=== PATIENT | female | born 1945 | race Caucasian/White ===

== ENCOUNTER 2018-01-03 06:33 | Day surgery (SDC) | payer OTHER ==
[2017-12-31 11:50] LABS: Absolute Lymphocytes (CBC) 2.8 K/uL (0.7-4.9); Absolute Monocytes 0.7 K/uL (0.1-1.3); Absolute Neutrophil 3.6 K/uL (1.8-8.0); Basophils % 1.4 % (0-1.3); Eosinophils % 2.6 % (0-4.4); Lymphocytes % 38.1 % (15.3-44.8); MCH 30.1 pg (27.0-35.0); MCV 91.1 fL (80-100); MPV 11.7 fL (7.6-11.3); Monocytes % 9.7 % (3.3-12.3); RBC Red Blood Cell Count 5.05 M/uL (3.86-4.86)
[2017-12-31 12:01] LABS: Potassium 4.7 mEq/L (3.6-5.0)
[2017-12-31 12:03] LABS: Urine Appearance CLEAR; Urine Bilirubin NEGATIVE (NEG); Urine Blood NEGATIVE (NEG); Urine Color YELLOW; Urine Glucose TRACE (NEG); Urine Specific Gravity >1.030 (1.005-1.030)
[2017-12-31 12:04] LABS: Urine Microscopic Reflex ORDER UMIC; Urine Protein 1+ (NEG); Urine Urobilinogen 0.2 mg/dL (0.2-1.0)
[2017-12-31 12:12] LABS: Protime INR 1.11
[2017-12-31 12:48] LABS: Urine Bacteria <20 /HPF (<20); Urine Culture Reflex Order REFLEXED; Urine RBC <5 /HPF (NONE SEEN)
[2018-01-03] MEDS ORDERED: MIDAZOLAM HCL 2 MG/2 ML INJ ONE (06:56)
[2018-01-03] MEDS ORDERED: FENTANYL CITR 250 MCG/5 ML ONE (06:56)
[2018-01-03] MEDS ORDERED: ONDANSETRON 4 MG/2 ML VIAL ONE (06:56)
[2018-01-03] MEDS ORDERED: PROPOFOL 200 MG/20 ML VIAL IV ONE (06:56)
[2018-01-03] MEDS ORDERED: ROCURONIUM 50 MG/5 ML VIAL IV ONE (06:56)
[2018-01-03] MEDS ORDERED: LIDOCAINE 2% MPF 5 ML VIAL ONE (06:56)
[2018-01-03] MEDS ORDERED: CEFAZOLIN/SWI 1gm 1 GM/10 ML SYR ONE ×2 (06:58→21:13)
[2018-01-03] MEDS ORDERED: NA CHLORIDE 0.9% 1,000 ML ONE (06:58)
[2018-01-03] MEDS ORDERED: NA CHLORIDE 0.9% 100 ML IV ONE (07:02)
[2018-01-03] MEDS: CEFAZOLIN/SWI 1gm 1 GM/10 ML SYR ONE ×2 (07:36→08:00)
[2018-01-03] MEDS: VASOPRESSIN 20 UNIT/ML VIAL ONE ×2 (07:37→08:27)
[2018-01-03] MEDS ORDERED: GLYCOPYRROLATE 0.2 MG/ML SYR ONE (08:08)
[2018-01-03] MEDS: NA CHLORIDE 0.9% 1,000 ML ONE ×4 (08:40→10:26)
[2018-01-03] MEDS ORDERED: CEFAZOLIN SODIUM 1 GM/VIAL ONE (10:58)
[2018-01-03] MEDS ORDERED: FENTANYL CITR 100 MCG/2 ML ONE (11:07)
[2018-01-03] MEDS ORDERED: Morphine 2 MG/2 ML SYR IV PRN (11:43)
[2018-01-03] MEDS ORDERED: ONDANSETRON 4 MG/2 ML VIAL IV PRN (11:43)
[2018-01-03] MEDS ORDERED: PROMETHAZINE 25 MG/ML VIAL IV PRN (11:43)
--- NOTE | 2018-01-03 11:53 | P.BOP ---
Preoperative diagnosis: cystocele stage 3, vault prolapse, rectocele occult DANE , labial adhesions Postoperative diagnosis: same and posterior enterocele, labial adehsions Primary procedure: cystocele repair with mesh augm/ jen SSLFcolpopexy, rectocele repair Secondary procedure: posterior enterocele repair, lysis of labial adhesions, TVT-O, cysto Hydroelectric Production Technician: Miriam Gerardo Estimated blood loss: 200 Specimen: none Findings: +2/+3/+1/5/thin/5/+1/+1/n/a Anesthesia: General Complications: None Drain(s): Urinary catheter Implants: Uphold mesh, TVT-O MUS sling Transferred to: Recovery Room Condition: Good
[2018-01-03 14:27] VITALS: BMI 32.7
[2018-01-03] MEDS ORDERED: AMLODIPINE 5 MG TAB PO SCH (17:30)
[2018-01-03] MEDS: Ringers Lactate 1,000 ML IV SCH (18:08)
[2018-01-03] MEDS: ACETAMINOPHEN 500 MG TAB PO PRN (20:55)
[2018-01-03] MEDS ORDERED: INSULIN 70/30 100 UNITS/ML SQ SCH (21:00)
[2018-01-03] MEDS: CEFAZOLIN/NS 1gm 1 GM/50 ML BAG IVPB SCH (21:15)
[2018-01-03 21:52] VITALS: O2SAT 96
[2018-01-04] MEDS: Ringers Lactate 1,000 ML IV SCH (02:18)
[2018-01-04] MEDS ORDERED: CEFAZOLIN/SWI 1gm 1 GM/10 ML SYR ONE (05:42)
[2018-01-04] MEDS: CEFAZOLIN/NS 1gm 1 GM/50 ML BAG IVPB SCH (06:00)
[2018-01-04 06:32] LABS: Absolute Monocytes 1.4 K/uL (0.1-1.3); Absolute Neutrophil 11.1 K/uL (1.8-8.0); Basophils % 0.7 % (0-1.3); Eosinophils % 0.9 % (0-4.4); Hematocrit 39.3 % (36.0-45.0); Lymphocytes % 18.9 % (15.3-44.8); MCH 30.4 pg (27.0-35.0); MPV 11.2 fL (7.6-11.3); RBC Red Blood Cell Count 4.32 M/uL (3.86-4.86)
[2018-01-04] MEDS: ACETAMINOPHEN 500 MG TAB PO PRN (07:45)
[2018-01-04 08:08] VITALS: BP 152/72; TEMP 99.3
[2018-01-04] MEDS ORDERED: TERBINAFINE HCL 250 MG TAB PO SCH (09:00)
--- NOTE | 2018-01-14 10:43 | OP ---
Date of Procedure: 01/03/2018 Surgeon: Missy Hart MD Cash Specialist: Miriam Gerardo. Preoperative Diagnosis: Stage III cystocele or anterior wall prolapse and pelvic wall prolapse, rect ocele, occult stress urinary incontinence, labial adhesions, and posterior enterocele. Postoperative Diagnosis: Stage III cystocele or anterior wall prolapse and pelvic wall prolapse, rec tocele, occult stress urinary incontinence, labial adhesions, and posterior enterocele, labial adhesi ons. Procedures Performed: 1.Cystocele repair with synthetic graft augmentation. 2.Bilateral sacrospinous ligament fixation. 3.Colpopexy. 4.Rectocele repair. 5.Posterior enterocele repair, lysis of labial adhesions. 6.Mid urethral sling (TVT). 7.Cystoscopy. Estimated Blood Loss: 200. Specimens: None. Complications: None. Drains: Camacho catheter. Implants: Uphold mesh and TVT mid urethral sling. Findings: POP-Q is as follows:+2, +3, +1, 5, which was realized after intraop exam was done and labi al adhesions were taken down. Then, 5 ,+1, +1 and no applicable; on cystoscopy both ure teric orifices had strong jets of urine, and the bladder appeared to be unremarkable. Indications: The patient was a 72-year-old who presented with problems of vaginal prolapse. She was referred by Dr. Hager. She had worsening urgency and urinary incontinence in the last 2 months. N o vaginal bleeding. She has bowel movement along with her urinary voiding for the for past few month s. Her biggest problem or complaint was the large vaginal bulge, which was impairing her ability to perform her regular activities without bothering. She was sexually active in the past and is unable to do this at the current time. Surgical history is significant for hysterectomy and BSO 40 years ag o,appendectomy, left knee replacement, and trigger finger release. The patient is diabetic and hypert ensive, takes amlodipine for hypertension and Novolin for anxiety. She has been started on Estrace p reop. She was examined in the office. Urodynamic testing was done. She had low maximal urethral cl osure pressure of 59 and Valsalva leak point pressure that was 33 cm of water, and she also has mild . So plan was to place a mid urethral sling because she has a high potential of stress inc ontinence after prolapse reduction. For overactive bladder, we would like to watch. She was residential substance abuse counselor ed to watch until the procedure is completed, and the bladder modifies its frequency and urgency and then treat if needed. After discussing the warnings and all the complications listed and comparing t he contrasting, it appears within the graft augmentation comparing the biological and synthetic repai rs, the patient was counseled and after questions and answers were done, she consented for synthetic graft augmentation repair, because she wanted to have least chances of recurrence in the same quadran t, rectocele was stage II and discussed about recurrence rates with primary repair which is the proce dure of choice for the patient with primary rectocele. She also understood that there was a 30% shannon ce of repeat surgery for that reason and it is the prolapse, and she was consented. Her glycemic con trol was noted to be optimal. Procedure In Detail: After informed consent was verified, the patient was taken to the OR, placed in supine fashion on operating table. One gram of Ancef was given. The patient was placed in a dorsal lithotomy position. Pelvic exam was performed. She was placed in dorsal lithotomy position. No all ergies to medication. After pelvic exam was done, the labial adhesions that met her introitus appear much smaller or narrow er then what were found intraop. The abdomen, vulva, vagina, and perineum were prepped and draped in a sterile fashion. Camacho was ismael ginny in the bladder and clamped and retracted superiorly. The labial adhesions were to be addressed a fter the anterior repair. So, a speculum was placed in the posterior wall of the vagina. The apex was easily grasped with 2 Allis clamps, and 2-0 Vicryl tie sutures were placed to chris the apex. The n midline anterior vaginal wall was held between 2 Allis clamps, one placed right proximal to the ure terovesical junction, one distal to the vaginal wall. After making vaginal mucosal incision with a 1 5-blade, dissection was carried in the plane of the rectovaginal space taking down the vaginal submuc anselmo on the top all the way to the bladder neck into the wall, and the bladder was dissected away unti l the lateral sulci were visualized then the opposite dissection was done as well. Then, using the finger paravesical space was entered and the pararectal space, ischial spine palpated , and sacrospinous ligament palpated medial and posterior to the ischial spine. This was cleaned up through the coccygeus muscle. Once this was done on the right, similar dissection was performed on t he left side and then uphold and opened up. Next, after all was opened, the bite was taken first. This was placed about 2.5 cm medial and posterior to the ischial spine. A good bite was taken. This was retracted on hemostats. These were taken to 2 passes in order to get an optimal pass. Because of this . Once these 2 were tagged, the dilators were pulled to adjust better by contraction of the ligament, a nd the bladder was reduced with 3-0 Vicryl in a correction fashion. The graft was secured to the vag inal vault with 2 PDS sutures, one in the center and 2 on both sides so that the graft was offloaded from its place. Then 2-0 Vicryl suture was taken in a continuous running horizontal mattress fashion the vaginal wall was closed about 3 cm and posterior. Secured the mesh distally with the help of 3-0 Vicryl sutures on the center and 2 on the side just to leave the graft flat without getting folding. The mesh was tensioned much more appropriately withou t a band at the top. Once all this was in place, and point C was at -6 to 7 and then went down to cu t the cord, then the plastic sheaths were off and pulled them out on both sides without tightening an y further. The rest of the vaginal cuff was closed, Camacho was removed and cystoscopy was performed w ith a 17-Polish sheath 30-degree lens and normal saline. Both ureteric orifices well visualized and noted normal jets of urine from both. The patient was given Pyridium prior to the case. There was o range urine. Entire bladder was without any evidence of graft penetration. Cystoscope removed, Camacho replaced. The posterior vaginal wall was depressed tract at this time. The labial adhesions were injected with 1% lidocaine mixed with 1:100,000 epinephrine. Incision made in the midline, and then they were bot h so that they can be sewn without bringing them together in the midline. A triangular skin incision made in the perineum after injecting 50 cc of local with vasopressin and w as diluted, and then the posterior vaginal wall was to at least 2 cm below the apex. This was very p ulled up. I did not think it was necessary for me to make the incision that high that it would disse ct underneath. Once this was done, the rectovaginal septum was dissected away. There was no evidenc e of any septum in the proximal half; however, at this point there was no large enterocele. This was also out, reduced with 3-0 Vicryl, pursestring sutures x3, and the left over rectovaginal septum was under a lot of tension when this was brought to the apex to suture it. We closed the ente rocele and brought the rectovaginal septum together in the midline with interrupted 3-0 Vicryl x3, an d rectal exam was performed and identified the bulbocavernosus muscle and the remnant of them in the midline laterally. Once these were held in Allis clamps. 2-0 Vicryl sutures were placed m ultiple times in order to finish the task. Without taking the levators, these were all brought toget her in 3 sutures and they were tied together with 2-0 Vicryl. Then I trimmed the mucosa was slightly just to take away the edges on a 2 mm. It became very thin. There was a lot of scar tissue in the lower one-third, and this took a long while to dissect this. T his was also trimmed off. The vaginal mucosa was sewn with the help of 2-0 Vicryl in a continuous ru nning locked fashion. Then, 0 Vicryl was used to finish the perineal body rebuilding and after closu re of the perineum. Rectal exam was performed. No evidence of any trauma or foreign body. After gloves were changed, mid urethral area was identified. both sides injected with dil [place] vasopressin 10 cc was done on both sides with a track remaining. The Al stirrups were used to raise the legs into high lithotomy position without causing too much traction at the hip. Then trac ks were created towards the ipsilateral shoulder at 40 degree angle to the horizontal and vertical pl anes on the inferior pubic ramus. Once the obturator space was it was entered on the right side, the n this was opened up and the tract opened up. That was somewhat difficult with was able to achieve t his in the same angle and once this was done, the TVT kit was opened up. The wing guide was used to gently slide in the tract that was already made into the obturator space. Then, the spike was passed in the usual fashion to hug the pubic ramus and exit out at the point of entry based on the level m arked. On the opposite side similar pass was taken. The tip was retrieved in the groin. The plastic dilato rs were pulled out. The plastic sheaths were held with Kellys on both sides and dilators were cut of f. Tension on the urethra was of hemostats and the sheaths were taken out. The mesh was trimmed and flushed with the skin and central the vaginal mucosa was closed with the help of 3-0 Vicryl in a con tinuous running locked fashion. Cystoscopy was performed. No evidence of any trauma to the bladder o r foreign body. Camacho replaced. Packing placed. Needle, instrument, and sponge counts x3 were miranda ect in the case. The patient tolerated procedure well. She will follow up with me in a month [facility] be discharged tomorrow without Camacho depending on her vo id. LONNY/SERGE Voice ID: [id number] Report ID: [id number]
== END 2018-01-04 09:40 | disposition home or self-care (01) ==
LOC: OR 06:33 → 2ND-WC 12:00 → OR 01-04 09:40
PROVIDERS: ATTEND Obstetrics & Gynecology
PROC: 0JUC0JZ Supplement of Pelvic Region Subcutaneous Tissue and Fascia with Synthetic Substitute, Open Approach (ICD-10-PCS; 2018-01-03)
PROC: 0JQC0ZZ Repair Pelvic Region Subcutaneous Tissue and Fascia, Open Approach (ICD-10-PCS; 2018-01-03)
PROC: 0USG7ZZ Reposition Vagina, Via Natural or Artificial Opening (ICD-10-PCS; 2018-01-03)
PROC: 0TSD0ZZ Reposition Urethra, Open Approach (ICD-10-PCS; 2018-01-03)
PROC: 0UNMXZZ Release Vulva, External Approach (ICD-10-PCS; 2018-01-03)
PROC: 0UQF0ZZ Repair Cul-de-sac, Open Approach (ICD-10-PCS; principal; 2018-01-03 07:30)
DX: N99.3 Prolapse of vaginal vault after hysterectomy (principal); N39.3 Stress incontinence (female) (male); Q52.5 Fusion of labia; N95.2 Postmenopausal atrophic vaginitis; N32.81 Overactive bladder; E11.9 Type 2 diabetes mellitus without complications; I10 Essential (primary) hypertension; E66.9 Obesity, unspecified; Z88.2 Allergy status to sulfonamides; Z82.49 Family history of ischemic heart disease and other diseases of the circulatory system; Z83.3 Family history of diabetes mellitus
CPT/HCPCS: 36415 ×2; 56441; 57265; 57267; 57282; 57288; 80048; 82962 ×5; 85025 ×2; 85610; 85730; 86850; 86900; 86901; 87086; 87088; J0690 ×5; J2250; J2270; J2405; J3010; J7030 ×3; 81003; 81015

== ENCOUNTER 2020-08-19 10:13 | Emergency (ER) | payer OTHER ==
--- OUTSIDE RECORDS SUMMARY | 2020-08-19 10:26 | XMS REPORT | Clinical Summary ---
:1945 Author Organization [facility] Address [address] [place] [address] Care Team Providers Name Role Phone Mathieu Hager MD Primary Care Provider Allergies Active Allergy Reactions Severity Noted Date Comments Sulfa (Sulfonamide Antibiotics) Itching High 8 Medications Medication Sig Dispensed Refills Start Date End Date Status amLODIPine (NORVASC) 5 Take 5 mg by mouth 0 05/23/20 18 Active mg tablet daily. atorvastatin (LIPITOR) 80 mg nightly. 0 07/04/2018 Active 80 MG tablet NOVOLIN 70/30 U-100 0 07/29/2018 Active INSULIN 100 unit/mL (70-30) injection COMFORT EZ SYRINGE 1 0 07/29/2018 Active mL 30 gauge x 5/16 syringe COMFORT EZ SYRINGE 1 0 07/30/2018 Active mL 31 gauge x 5/16 syringe losartan (COZAAR) 50 Take 50 mg by 0 Active MG tablet mouth daily. traMADol (ULTRAM) 50 Take 50 mg by 0 Active mg tablet mouth daily as needed for moderate pain. docusate sodium Take by mouth 2 0 Active (COLACE) 50 MG capsule (two) times a day. Active Problems Problem Noted Date Diabetes mellitus Glaucoma HL (hearing loss) Visual impairment Surgical History Surgery Date Site/Laterality Comments APPENDECTOMY COLONOSCOPY 09/17/2016 - 09/16/2017 normal EYE SURGERY Bilateral Dr. Rick gates HAND SURGERY Bilateral Carpal tunnel an d Trigger Finger HYSTERECTOMY KNEE SURGERY 09/17/2014 - 09/16/2015 Left Total Knee Replacement SHOULDER SURGERY 09/17/2016 - 09/16/2017 Right TUBAL LIGATION BARIATRIC SURGERY Shayan Vu Medical History Medical History Date Comments Allergic Ragweed, grass, tree s Diabetes mellitus (HCC) HL (hearing loss) Visual impairment Glaucoma Bilateral Family History Medical History Relation Name Comments Heart disease Father Cancer Mother Diabetes Mother Heart disease Mother Stroke Mother Diabetes Sister Heart disease Sister Stroke Sister Relation Name Status Comments Father Mother Sister Social History Tobacco Use Types Packs/Day Years Used Date Never Smoker Smokeless Tobacco: Never Used Alcohol Use Drinks/Week oz/Week Comments No Alcohol Habits Answer Date Recorded How often do you have a drink containing alcohol? Never 08/28/2018 How many drinks containing alcohol do you have on a typical Not asked day when you are drinking? How often do you have six or more drinks on one occasion? No t asked Sex Assigned at Date Recorded Not on file Last Filed Vital Signs Not on file Plan of Treatment Health Maintenance Due Date Last Done Comments DIABETES: RETINAL EYE EXAM 1957 DIABETIC FOOT EXAM 1957 BREAST CANCER SCREENING 1997 COLONOSCOPY SCREENING 1997 SHINGLES VACCINES (#1) 1997 65+ PNEUMOCOCCAL VACCINE (1 of 1 - PPSV23) 2012 INFLUENZA VACCINE 04/17/2020 Results Not on fileafter 08/19/2019 Insurance Payer Benefit Plan / Subscriber ID Effective Phone Address T ype Group Dates MEDICARE MEDICARE PART [id number] [facility] [place] [place] [facility] A AND B nt MUTUAL OF M[employer]UAL OF [id number] 2017-Shari DAVIES nt Advance Directives For more information, please contact: [phone] Type Date Recorded Patient College Intern Explanati on Advance Directives, Living Will and Medical Power of Poultry Trimmer
--- OUTSIDE RECORDS SUMMARY | 2020-08-19 10:27 | XMS REPORT | Encounter Summary ---
:1945 Author Care Team Providers Name Role Phone Dr. Eladio Lou Primary Care Provider [phone] Mathieu Hager MD Primary Care Provider [phone] Reason for Visit diabetes Instructions 1. 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 Obstructive sleep apnea syndr ome 4. Obesity 5. Hyperlipidemia high cholesterol: care ins tructions 6. Essential hypertension 7. Body mass index 30+ - obesity body mass index: care inst ructions learning about healthy elton ght Discussion Note: None recorded. Plan of Care Reminders Provider Appointments None recorded. Lab None recorded. Referral None recorded. Procedures None recorded. Surgeries None recorded. Imaging None recorded. Medications Name Start Date Accu-Chek Annalisa Plus test strips BD Insulin Syringe Ultra-Fine 0.5 mL 31 gauge x 5/16" losartan 50 mg tablet Take 1 tablet every day by oral route in the morning. Novolin 70/30 U-100 Insulin 100 unit/mL subcutaneous s uspension Inject 54 units twice a day by subcutaneous route bef ore meals. tramadol 50 mg tablet Take 1 tablet every 6 hours by oral route as needed. Travatan (with benzalkonium) 0.004 % eye drops INSTILL 1 DROP INTO AFFECTED EYE(S) BY OPHTHALMIC ROUTE ONCE DAILY INTHE EVENING Tylenol Arthritis Pain Medications Administered None recorded. Vitals Height Weight BMI Blood Pressure 5 ft 2 in 170 lbs 31.1 kg/m2 165/76 mm[Hg] Results Lab Results None recorded. Allergies Code Code System Name Reaction Severity Status Onset 67504 RxNorm Sulfacetamide Hives Active Problems Name Status Onset Date Source Hyperlipidemia Active 06/20/2017 Obesity Active 06/20/2017 Type 2 Diabetes Mellitus Active 07/16/2018 Retinal Disorder Active 07/16/2018 Essential Hypertension Active 10/22/2018 Obstructive Sleep Apnea Syndrome Active 08/26/2019 Type 2 Diabetes Mellitus with Multiple Active 0 Complications Procedures Date Name Performed by 03/17/2019 Knee Replacement Information not avai lable 04/17/2017 Extraction of Cataract Information not a vailable 03/17/2017 Complete Repair of Rotator Cuff Informat ion not available Vaccine List Vaccine Type influenza, injectable, quadrivalent 05/17/2020 Social History Tobacco Smoking Status Never Smoker Past Encounters 06/15/2020 Type 2 Diabetes Mellitus with Multiple C omplications; Retinal Disorder; Obstructive Sleep Apnea Syndrome; Obesity; Hyperlipidemia; Essential Hypertension; Body Mass Index 30+ - Obesity Eladio Mauricio MD: [id number] [facility] [place], [facility] [address], [place] [address], Ph. History of Present Illness Diabetes F/U Reported By: Patient HPI: Review finger sticks: fastin s to 130s, pre dinner: 70s to 230s. Context: seeing eye doctor r egularly. Associated Symptoms: no weight gain, no weight loss, no inc reased thirst, no increased urination, no blurred vision, numbness of feet Notes: Diabetes Education: discusse d with pt about her current dose of novolin 70/30. she is taking between 40 - 50 units bid.<div>-she does have occasional hypoglycemia and is tired of checking her bg level on her fingers. she is interested i n getting a Freestyle Lonny system if insurance would cover it. </ div><div>-explained to her that medicare required 3x/day injections, but during the Covid-19 crisis, they have allowed other insulin users to get this system. discussed this with the MD. If she had it, she would be able to determine the right dose of her insulin.</div><div>
</div ><div>30 minutes of diabetes education performed today</div> Note: Her visit is an audio visit via telephone for her DM2. She thinks her BP is high because she hasher mother in law living with her and she recently adopted her 16 year grandson. Review of Systems Comprehensive General Adult ROS Reported By: Patient Constitutional: Constitutional: no fever, no night sweats Eyes: Eyes: no dry eyes, no vision change ENMT: Ears: no difficulty hearing, no ear pain. Mouth/Throat: no sore throat Cardiovascular: Cardiovascular: no chest jorge n, no shortness of breath when walking, no palpitations Respiratory: Respiratory: no cough, no wh eezing, no shortness of breath Gastrointestinal: Gastrointestinal: no abdomin al pain, no nausea, no vomiting, no constipation, no diarrhea Musculoskeletal: Musculoskeletal: no muscle a ches, no muscle weakness, no arthralgias/joint pain, no b ack pain, no swelling in the extremities Integumentary: Skin: no rashes Neurologic: Neurologic: no weakness, no dizziness, no headaches Psychiatric: Psych: no depression, no sle ep disturbances, no anxiety Endocrine: Endocrine: no fatigue Allergic/Immunologic: Allergy/Immunologic: no itch ing Physical Exam Notes: Alert and oriented to place and time
--- OUTSIDE RECORDS SUMMARY | 2020-08-19 10:27 | XMS REPORT | Encounter Summary ---
:1945 Author Care Team Providers Name Role Phone Dr. Eladio Lou Primary Care Provider [phone] Mathieu Hager MD Primary Care Provider [phone] Reason for Visit diabetes Instructions 1. Multiple complications due to type 2 diabetes mellitus 2. Retinal disorder 3. Obstructive sleep apnea [...] Code System Name Reaction Severity Status Onset 64646 RxNorm Sulfacetamide Hives Active Problems Name Status Onset Date Source Hyperlipidemia Active 06/20/2017 Obesity Active 06/20/2017 Type 2 Diabetes Mellitus Active 07/16/2018 Retinal Disorder Active 07/16/2018 Essential Hypertension Active 10/22/2018 Obstructive Sleep Apnea Syndrome Active 08/26/2019 Multiple Complications Due to Type 2 Diabetes Active Mellitus Procedures Date Name Performed by 03/17/2019 Knee Replacement Information not avai lable 04/17/2017 Extraction of Cataract Information not a vailable 03/17/2017 Complete Repair of Rotator Cuff Informat ion not available Vaccine List Vaccine Type influenza, injectable, quadrivalent 05/17/2020 Social History Tobacco Smoking Status Never Smoker Past Encounters Encounter Date Diagnosis Provider 06/15/2020 Multiple Complications Due to Eladioadia Tellez MD: Type 2 Diabetes Mellitus; [address] Retinal Disorder; Obstructive [place], [address], Sleep Apnea Syndrome; Obesity; [place] [address], Hyperlipidemia; Essential Ph. Hypertension; Body Mass Index 30+ - Obesity History of Present Illness Diabetes F/U Reported [...]
</div ><div>30 minutes of diabetes education performed today</div><div&gt ;This is a Telemed visit.
</div><div>I confirm that I received verb al consent from the patient for the virtual visit.
</div><div>This te lemedicine encounter was performed using live video and audio.
</d iv><div>
</div> Note: Her visit is an audio visit [...]
--- OUTSIDE RECORDS SUMMARY | 2020-08-19 10:27 | XMS REPORT | Summary of Care ---
:1945 Author Organization [facility] - Health Address [address] [place] [address] Care Team Providers Name Role Phone Mathieu Hager Primary Care Provider Ronak Cooper MD Unavailable Reason for Visit Reason Comments Chills x last night Body Aches x last night Headache x last night Fever x last night Encounter Details Date Type Department Care Team Description 08/15/2020 Urgent Care [facility] Family Tyree Nevaeh, SHEEBA [address] [place], [place] [address] Viral illness (Primary Dx); Medicine - [place] Provider, [facility] Fever, unspecified fever cause; [address] [facility] Exposure t [place] [id number] Allergies Active Allergy Reactions Severity Noted Date Comments Sulfa (Sulfonamide Unknown - See comments, High 03/19/2015 Other reaction(s): Antibiotics) Itching Other (see comm ents) documented as of this encounter (statuses as of 08/15/2020) Medications Medication Sig Dispensed Refills Start Date End Date Status INSULN ASP inject 45 Units under 0 Active PRT/INSULIN ASPART the skin 2 (two) (NOVOLOG MIX 70-30 times daily. SC) atorvastatin 80 mg Take 80 mg by mouth 0 Active tablet at bedtime. losartan 50 mg Take 50 mg by mouth 0 Active tablet daily. ascorbic acid, Take 500 mg by mouth. 0 Active vitamin C, 500 mg tablet ACCU-CHEK LORI USE 1 STRIP TO CHECK 0 07/06/2020 Active PLUS TEST STRP GLUCOSE THREE TIMES strip DAILY IN VITRO FOR 90 DAYS calcium-vitamin D Take 1 tablet by 0 Active 500 mg(1,250mg) mouth. -200 unit per tablet Cholecalciferol, Take 5,000 Units by 0 Active Vitamin D3, 125 mcg mouth. (5,000 unit) capsule docusate sodium 50 Take by mouth. 0 Active mg capsule NOVOLIN 70/30 U-100 INJECT 54 UNITS 0 06/24/2020 Active INSULIN 100 unit/mL SUBCUTANEOUSLY BEFORE (70-30) suspension BREAKFAST THEN INJECT 54 UNITS BEFORE DINNER AND INCREASE DIRECTED ( TDD 150 UNITS ) latanoprost 0.005 % INSTILL 1 DROP INTO 0 07/19/2020 Active ophthalmic drops EACH EYE EVERY DAY AT BEDTIME montelukast 10 mg Take 10 mg by mouth. 0 09/26/2019 Active tablet sodium chloride USE 2 SPRAYS IN EACH 0 10/02/2019 Active (DEEP SEA NASAL) NOSTRIL TWICE DAILY 0.65 % nasal spray NEEDED traMADoL 50 mg Take 50 mg by mouth. 0 Active tablet losartan 50 mg Take 50 mg by mouth. 0 Active tablet documented as of this encounter (statuses as of 08/15/2020) Active Problems Problem Noted Date Left knee pain 06/10/2015 documented as of this encounter (statuses as of 08/15/2020) Resolved Problems Problem Noted Date Resolved Date S/P total knee arthroplasty 03/23/2015 03/23/2015 documented as of this encounter (statuses as of 08/15/2020) Social History Tobacco Use Types Packs/Day Years Used Date Never Smoker Smokeless Tobacco: Never Used Alcohol Use Drinks/Week oz/Week Comments No 0 Standard drinks or equivalent 0.0 Sex Assigned at Date Recorded Not on file COVID-19 Exposure Response Date Recorded In the last month, have you been in contact with No / Unsure 08/15/2020 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 documented as of this encounter Last Filed Vital Signs Vital Sign Reading Time Taken Comments Blood Pressure 148/73 08/15/2020 10:37 AM LENS MOLDING EQUIPMENT OPERATOR Pulse 83 08/15/2020 10:34 AM LENS MOLDING EQUIPMENT OPERATOR Temperature 37.3 C (99.2 F) 08/15/2020 10:34 AM LENS MOLDING EQUIPMENT OPERATOR Respiratory Rate 18 08/15/2020 10:34 AM LENS MOLDING EQUIPMENT OPERATOR Oxygen Saturation 97% 08/15/2020 10:34 AM LENS MOLDING EQUIPMENT OPERATOR Inhaled Oxygen Concentration - - Weight 79.8 kg (176 lb) 08/15/2020 10:34 AM LENS MOLDING EQUIPMENT OPERATOR Height 160 cm (5' 3") 08/15/2020 10:34 AM LENS MOLDING EQUIPMENT OPERATOR Body Mass Index 31.18 08/15/2020 10:34 AM LENS MOLDING EQUIPMENT OPERATOR documented in this encounter Patient Instructions Patient InstructionsNevaeh ClementsSHEEBA - 08/15/2020 10:20 AM CST1. Viral illness 2. Fever, unspecified fever cause - POCT GRP A FLU (MOLECULAR) - NEGATIVE Viral Illness -- No focus suspicious for a bacterial process. Educated patient that viral illness usually last 7-10 days and resolve with symptomatic treatment. Based on onset of symptoms, exam findings, and negative flu test this is likely a viral illness. - counseled patient about at home care: Cold/Sinus as needed for fever and/or congestion Robitussin DM or Mucinex DM to help with cough Tylenol and Ibuprofen as needed for pain and fever Rest Raise head of bed Increase fluids -HYDRATION WITH CLEAR LIQUIDS Vitamin C Warm salt water gargles or CEPACOL sprays for sore throat. Breath humidified air (steam) SIPPING WARM DRINKS may help. Warm Compresses (if sinus pressure or pain). HAND HYGIENE (with alcohol gels or hand washing) Advised to take Tylenol or Ibuprofen as per label recommendation as needed for pain or fever Honey 10mL (2 teaspoons) has been shown to relieve cough at bedtime. Dark Chocolate helps with cough (xanthenes) Avoidance of cigarette smoke, alcoholic drinks, diving into deep water and air travel is useful. Irrigate your nose with normal saline moisture spray 2 or 3 times a day. You may use a spray, squeeze bottle, or nasal pot. ? Nasal Congestion (Stopped Up): Oxymetazoline HCl (Afrin, 4-Way, & more) 0.05 % nasal spray, 1 spray each nostril at bedtime. Limit to 5 nights. If use twice a day then limit to 3 days. - Advised to follow up with PCP, return to Urgent Care, or go to the nearest Emergency Department sooner for any new, worsening, persistent, or concerning symptoms. 3. Exposure to SARS-associated coronavirus - COVID-19 (MOLECULAR TESTING NUCLEIC ACID AMPLIFICATION) - Quarantine until your COVID results are back Criteria met - Covid testing - pending. This test can take 2-3 days to be resulted. While the test is pending...Please socially isolate your self - do not go out to stores or out in public. We will contact you once we have the results. If you are negative - continue with symptomatic treatment. (see below) Patients who have positive results will be contacted by the health department to enforce quarantine measures and for additional community contact tracing. The Infection Control Department will also undertake evaluation of exposures in our healthcare facility. If symptoms worsen - please call your Primary Care Doctor - do not go into the clinic. Call first. Educated on the following at home care: - Discussed likely viral diagnosis and treatment plan with pt. - pt advised on frequent effective handwashing - pt advised to increase fluid intake , stay hydrated and get plenty of rest. - advised to have the pt take OTC to treat symptoms. - Pt advised to administer Tylenol as per label recommendation as needed for pain or fever - Cover mouth when coughing, wear mask - Stay in your own bedroom and use a separate bathroom - Keep at least 6 feet from you and others - Avoid sharing personal household items, dishes, glasses, cups, towels -Clean high traffic/touch areas daily. These include but not limited to: doorknobs, refrigerator/cabinet handles, phones, keyboards, tablets, light switches. - AVS and Written/handout materials appropriate to problem and teaching provided. - advised to go to the nearest Emergency Department sooner for any new, worsening, persistent, or concerning symptoms - Patient verbalized understanding of all instructions - Follow-up with PCP as needed, if no improvement EDUCATION: Handouts given: Patient educated on plan of care for visit, swabbing technique,risks and benefits of test and lengthof time to receive results. Verbal consent obtained to perform test. CDC Fact Sheet for patients nCoV Diagnostic Panel dated 11/30/2019 provided. "What to do if you are sick with COVID-19" CDC information guide reviewed with the patient and handout given to patient Education given to self quarantine until results are back. Will notify patient with results. Patient states understanding and all questions answered. Plan of care, goals and medications discussed with patient. Patient voices understanding. Barriers to care: none Ability to manage care: good FOLLOW UP: Pt advised to call 911 or go to the nearest Emergency Department sooner for any worsening, persistent, or concerning symptoms ER precautions given Plan of care, desired health behaviors, goals, and medication discussed with patient. Education resources provided and reviewed with AVS. Patient/guardian/family verbalized understanding & agrees to plan of care. Urgent Care precautions and follow up : 1. Return to clinic if your symptoms should worsen or fail to improve within 72 hours. 2. The care provided in the urgent care was for acute problems only. 3. You should follow up with your primary care provider within 72 hours. 4. Make sure you are staying adequately hydrated. MAY FOLLOW-UP WITH A PROVIDER OF YOUR CHOICE, SUCH : 1. A PHYSICIAN OF YOUR CHOICE OR, IF YOU WISH TO FOLLOW-UP WITHIN THE [facility], MAY TRY THESE OPTIONS (CLINIC APPOINTMENTS AVAILABLE ON [id number] BASIS): 1. SCHEDULE AN APPOINTMENT ONLINE AT [facility] 2. OR CALL THE [facility] ACCESS CENTER AT OR 3. OR CALL YOUR [facility] PHYSICIAN'S OFFICE DIRECTLY IF YOU ARE ALREADY AN ESTABLISHED [facility] PATIENT. After hours care nurse access center available by calling [phone] 24 hours 7 days per week. 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 Also headache. TMAX 100.8. she's not taking any otc medications. Denies any cough or sob. Denies any sick contacts or travel. Eating/drinking good. URI Presenting symptoms: congestion, fatigue, fever and rhinorrhea Presenting symptoms: no cough and no sore throat Congestion: Location: Nasal Interferes with sleep: no Interferes with eating/drinking: no Fatigue: Severity: Mild Duration: 1 day Timing: Intermittent Progression: Unchanged Fever: Timing: Intermittent Max temp prior to arrival: 100.8 Temp source: Oral Progression: Unchanged Rhinorrhea: Quality: Clear Severity: Mild Duration: 1 day Timing: Intermittent Progression: Unchanged Severity: Mild Onset quality: Sudden Duration: 1 day Timing: Intermittent Progression: Unchanged Chronicity: New Relieved by: None tried Worsened by: Nothing Ineffective treatments: None tried Associated symptoms: headaches, myalgias and sneezing Associated symptoms: no arthralgias, no neck pain, no sinus pain, no swollen glands and no wheezing Risk factors: being elderly, chronic cardiac disease, chronic kidney disease and diabetes mellitus Risk factors: no immunosuppression, no recent illness, no recent travel and no sick contacts Allergies Delores is allergic to sulfa (sulfonamide antibiotics). Medications Outpatient Medications Prior to Visit Medication Sig Dispense Refill montelukast 10 mg tablet Take 10 mg by mouth. sodium chloride (DEEP SEA NASAL) 0.65 % nasal spray USE 2 SPRAYS IN EACH NOSTRIL TWICE DAILY NEEDED ACCU-CHEK LORI PLUS TEST STRP strip USE 1 STRIP TO CHECK GLUCOSE THREE TIMES DAILY IN VITRO FOR90 DAYS ascorbic acid, vitamin C, 500 mg tablet Take 500 mg by mouth. calcium-vitamin D 500 mg(1,250mg) -200 unit per tablet Take 1 tablet by mouth. Cholecalciferol, Vitamin D3, 125 mcg (5,000 unit) capsule Take 5,000 Units by mouth. docusate sodium 50 mg capsule Take by mouth. latanoprost 0.005 % ophthalmic drops INSTILL 1 DROP INTO EACH EYE EVERY DAY AT BEDTIME losartan 50 mg tablet Take 50 mg by mouth. NOVOLIN 70/30 U-100 INSULIN 100 unit/mL (70-30) suspension INJECT 54 UNITS SUBCUTANEOUSLY BEFOREBREAKFAST THEN INJECT 54 UNITS BEFORE DINNER AND INCREASE DIRECTED ( TDD 150 UNITS ) traMADoL 50 mg tablet Take 50 mg by mouth. atorvastatin 80 mg tablet Take 80 mg by mouth at bedtime. losartan 50 mg tablet Take 50 mg by mouth daily. INSULN ASP PRT/INSULIN ASPART (NOVOLOG MIX 70-30 SC) inject 45 Units under the skin 2 (two) times daily. No facility-administered medications prior to visit. Histories Past Medical History: Diagnosis Date CKD (chronic kidney disease) Diabetes mellitus Hypertension Kidney stones Knee pain, chronic, left Other and unspecified hyperlipidemia Proteinuria Past Surgical History: Procedure Laterality Date ABDOMINOPLASTY ADENOIDECTOMY JOINT SURGERY Right knee OPEN CARPAL TUNNEL RELEASE Left TOTAL KNEE ARTHROPLASTY Left 03/22/2015 Surgeon: Gordo Dominguez MD; Location: [facility] OR [facility] FINGER RELEASE Social History Socioeconomic History Marital status: Spouse name: Not on file Number of children: Not on file Years of education: Not on file Highest education level: Not on file Occupational History Not on file Social Needs Financial resource strain: Not on file Food insecurity Worry: Not on file Inability: Not on file Transportation needs Medical: Not on file Non-medical: Not on file Tobacco Use Smoking status: Never Smoker Smokeless tobacco: Never Used Substance and Sexual Activity Alcohol use: No Alcohol/week: 0.0 standard drinks Drug use: No Sexual activity: Not on file Lifestyle Physical activity Days per week: Not on file Minutes per session: Not on file Stress: Not on file Relationships Social connections Talks on phone: Not on file Gets together: Not on file Attends roman catholic service: Not on file Active member of club or organization: Not on file Attends meetings of clubs or organizations: Not on file Relationship status: Not on file Intimate partner violence Fear of current or ex partner: Not on file Emotionally abused: Not on file Physically abused: Not on file Forced sexual activity: Not on file Other Topics Concern Not on file Social History Narrative Not on file Family History Problem Relation Age of Onset Heart Mother Heart Father Stroke Father Heart Brother Hypertension Brother Diabetes Brother Review of Systems Constitutional: Positive for activity change, appetite change, chills, fatigue and fever. HENT: Positive for congestion, rhinorrhea and sneezing. Negative for sinus pain and sore throat. Respiratory: Negative for cough, shortness of breath, wheezing and stridor. Gastrointestinal: Negative for diarrhea, nausea and vomiting. Musculoskeletal: Positive for myalgias. Negative for arthralgias and neck pain. Skin: Negative for rash. Neurological: Positive for headaches. Negative for dizziness and weakness. All other systems reviewed and are negative. Vital Signs BP (!) 148/73 (BP Location: Left arm, Patient Position: Sitting, BP CUFF SIZE: Adult Medium) | Pulse 83 | Temp 37.3 C (99.2 F) (Oral) | Resp 18 | Ht 5' 3" (1.6 m) | Wt 176 lb (79.8 kg) | GvQ437% | BMI 31.18 kg/m Physical Exam Vitals signs and nursing note reviewed. Constitutional: Appearance: She is well-developed. HENT: Head: Normocephalic and atraumatic. Right Ear: Tympanic membrane, ear canal and external ear normal. Left Ear: Tympanic membrane, ear canal and external ear normal. Nose: Nose normal. Mouth/Throat: Lips: [place]. Mouth: Mucous membranes are moist. Pharynx: Oropharynx is clear. No pharyngeal swelling, oropharyngeal exudate, posterior oropharyngeal erythema or uvula swelling. Tonsils: No tonsillar exudate or tonsillar abscesses. 1+ on the right. 1+ on the left. Eyes: Conjunctiva/sclera: Conjunctivae normal. Neck: Musculoskeletal: Normal range of motion and neck supple. Cardiovascular: Rate and Rhythm: Normal rate and regular rhythm. Heart sounds: Normal heart sounds. No murmur. No friction rub. No gallop. Pulmonary: Effort: Pulmonary effort is normal. No respiratory distress. Breath sounds: Normal breath sounds. No decreased breath sounds, wheezing, rhonchi or rales. Musculoskeletal: Normal range of motion. Skin: General: Skin is warm and dry. Findings: No rash. Neurological: Mental Status: She is alert and oriented to person, place, and time. Psychiatric: Behavior: Behavior normal. Assessment/Plan Delores Mccarthy is a 75 year old female presents with concern for fever, chills and body aches that started last night. 1. Viral illness 2. Fever, unspecified fever cause - POCT GRP A FLU (MOLECULAR) - NEGATIVE Viral Illness -- No focus suspicious for a bacterial process. Educated patient that viral illness usually last 7-10 days and resolve with symptomatic treatment. Based on onset of symptoms, exam findings, and negative flu test this is likely a viral illness. - counseled patient about at home care: Tylenol as needed for pain and fever Rest Raise head of bed Increase fluids -HYDRATION WITH CLEAR LIQUIDS Vitamin C Warm salt water gargles or CEPACOL sprays for sore throat. Breath humidified air (steam) SIPPING WARM DRINKS may help. Warm Compresses (if sinus pressure or pain). HAND HYGIENE (with alcohol gels or hand washing) Advised to take Tylenol or Ibuprofen as per label recommendation as needed for pain or fever Honey 10mL (2 teaspoons) has been shown to relieve cough at bedtime. Dark Chocolate helps with cough (xanthenes) Avoidance of cigarette smoke, alcoholic drinks, diving into deep water and air travel is useful. Irrigate your nose with normal saline moisture spray 2 or 3 times a day. You may use a spray, squeeze bottle, or nasal pot. ? Nasal Congestion (Stopped Up): Oxymetazoline HCl (Afrin, 4-Way, & more) 0.05 % nasal spray, 1 spray each nostril at bedtime. Limit to 5 nights. If use twice a day then limit to 3 days. - Advised to follow up with PCP, return to Urgent Care, or go to the nearest Emergency Department sooner for any new, worsening, persistent, or concerning symptoms. 3. Exposure to SARS-associated coronavirus - COVID-19 (MOLECULAR TESTING NUCLEIC ACID AMPLIFICATION) - Quarantine until your COVID results are back Criteria met - Covid testing - pending. This test can take 2-3 days to be resulted. While the test is pending...Please socially isolate your self - do not go out to stores or out in public. We will contact you once we have the results. If you are negative - continue with symptomatic treatment. (see below) Patients who have positive results will be contacted by the health department to enforce quarantine measures and for additional community contact tracing. The Infection Control Department will also undertake evaluation of exposures in our healthcare facility. If symptoms worsen - please call your Primary Care Doctor - do not go into the clinic. Call first. Educated on the following at home care: - Discussed likely viral diagnosis and treatment plan with pt. - pt advised on frequent effective handwashing - pt advised to increase fluid intake , stay hydrated and get plenty of rest. - advised to have the pt take OTC to treat symptoms. - Pt advised to administer Tylenol as per label recommendation as needed for pain or fever - Cover mouth when coughing, wear mask - Stay in your own bedroom and use a separate bathroom - Keep at least 6 feet from you and others - Avoid sharing personal household items, dishes, glasses, cups, towels -Clean high traffic/touch areas daily. These include but not limited to: doorknobs, refrigerator/cabinet handles, phones, keyboards, tablets, light switches. - AVS and Written/handout materials appropriate to problem and teaching provided. - advised to go to the nearest Emergency Department sooner for any new, worsening, persistent, or concerning symptoms - Patient verbalized understanding of all instructions - Follow-up with PCP as needed, if no improvement EDUCATION: Handouts given: Patient educated on plan of care for visit, swabbing technique,risks and benefits of test and lengthof time to receive results. Verbal consent obtained to perform test. CDC Fact Sheet for patients nCoV Diagnostic Panel dated 11/30/2019 provided. "What to do if you are sick with COVID-19" CDC information guide reviewed with the patient and handout given to patient Education given to self quarantine until results are back. Will notify patient with results. Patient states understanding and all questions answered. Plan of care, goals and medications discussed with patient. Patient voices understanding. Barriers to care: none Ability to manage care: good FOLLOW UP: Pt advised to call 911 or go to the nearest Emergency Department sooner for any worsening, persistent, or concerning symptoms ER precautions given Plan of care, desired health behaviors, goals, and medication discussed with patient. Education resources provided and reviewed with AVS. Patient/guardian/family verbalized understanding & agrees to plan of care. Urgent Care precautions and follow up : 1. Return to clinic if your symptoms should worsen or fail to improve within 72 hours. 2. The care provided in the urgent care was for acute problems only. 3. You should follow up with your primary care provider within 72 hours. 4. Make sure you are staying adequately hydrated. MAY FOLLOW-UP WITH A PROVIDER OF YOUR CHOICE, SUCH : 1. A PHYSICIAN OF YOUR CHOICE OR, IF YOU WISH TO FOLLOW-UP WITHIN THE [facility], MAY TRY THESE OPTIONS (CLINIC APPOINTMENTS AVAILABLE ON [id number] BASIS): 1. SCHEDULE AN APPOINTMENT ONLINE AT WW[facility] 2. OR CALL THE [facility] ACCESS CENTER AT OR 3. OR CALL YOUR [facility] PHYSICIAN'S OFFICE DIRECTLY IF YOU ARE ALREADY AN ESTABLISHED [facility] PATIENT. After hours care nurse access center available by calling [phone] 24 hours 7 days per week. [facility] documented in this encounter Plan of Treatment Name Type Priority Associated Diagnoses Order S chedule COVID-19 (MOLECULAR LAB Routine Exposure to Expected : 08/15/2020, TESTING SARS-associated Expires: 021 NUCLEIC ACID coronavirus AMPLIFICATION) Health Maintenance Due Date Last Done Comments HEPATITIS C (HCV) SCREEN 1945 Depression Screening 1959 DTaP,Tdap,and Td Vaccines (1 - Tdap) 1966 Breast Cancer Screening (MAMMOGRAM) 1987 COLON CANCER SCREENING ANNUAL FIT/FOBT 1997 COLON CANCER SCREENING FIT DNA EVERY 3 YEARS 1997 COLON CANCER SCREENING SIGMOIDOSCOPY EVERY 5 YEARS 1997 COLONOSCOPY 1997 Colorectal Cancer Screening 1997 Zoster Recombinant Vaccine (SHINGRIX) (1 of 2) 1997 Osteoporosis Screening 2012 PNEUMOCOCCAL VACCINES 65+ (1 of 1 - PPSV23) 2012 INFLUENZA VACCINE (#1) 2020 documented as of this encounter Implants Implanted Type Area Racecar Driver Device Shelf Model / Identifier Expiration Date Ser ial / Lot [employer] Knee System Series A Standard Patella KNEE Left: Knee [employer] 12/10/2019 [id number] / Implanted: Qty: 1 on 03/22/2015 by Gordo Deutsch MD at [facility] [id number] / [id number] Tibial Tray KNEE Left: Knee [employer] 07/18/2024 [id number] / Implanted: Qty: 1 on 03/22/2015 by Gordo Deutsch MD at [facility] [id number] / [id number] Tibial Bearing KNEE Left: Knee [employer] 03/17/2019 [id number] / Implanted: Qty: 1 on 03/22/2015 by Gordo Deutsch MD at [facility] [id number] / [id number] Femoral Left KNEE Left: Knee [employer] 12/30/2024 [id number] / Implanted: Qty: 1 on 03/22/2015 by Gordo Deutsch MD at [facility] [id number] / [id number] Modular Finned Stem With Screw SCREW Left: Knee [employer] 01/25/2025 [id number] / Implanted: Qty: 1 on 03/22/2015 by Gordo Deutsch MD at [facility] [id number] / [id number] documented as of this encounter Procedures Procedure Name Priority Date/Time Associated Diagnosis Comme nts POCT FLU A AND B Routine 08/15/2020 11:46 AM Fever, unspecifie d Results for this (MOLECULAR) 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 documented in this encounter Results POCT FLU A AND B (MOLECULAR) (08/15/2020 11:46 AM LENS MOLDING EQUIPMENT OPERATOR) Pathologist Sig nature POCT INFLUENZA A Negative Negative - Negative POCT INFLUENZA B Negative Negative - Negative Specimen Swab documented in this encounter Visit Diagnoses Diagnosis Viral illness - Primary Unspecified viral infection, in conditio ns classified elsewhere and of unspecified site Fever, unspecified fever cause Exposure to SARS-associated coronavirus documented in this encounter Additional Health Concerns Infection Onset Date Last Indicated Resolved Time COVID-19 Rule Out 08/15/2020 08/15/2020 documented as of this encounter Insurance Payer Benefit Plan Subscriber ID Effective Phone Address Typ e / Group Dates MEDICARE MEDICARE [id number] 2012-Pres [phone] [facility] care PART A & B ent [id number] EDILSON BERMUDEZ [phone] [employer] [place] [id number] 2012-Pre Medica re SAMSON DAVIES sent Supplement documented as of this encounter
--- OUTSIDE RECORDS SUMMARY | 2020-08-19 10:27 | XMS REPORT | Continuity of Care Document ---
:1945 Author Organization [facility] t Address [address] [place] [address] Care Team Providers Name Role Phone Shiva Hager MD Primary Care Physician Provider, Urgent Care Attending Clinician Unavailable Payers Payer Name Policy Type Policy Number Effective Date Expiration Date S ource Problems Condition Condition Condition Status Onset Resolution Last Treating Co mments Source Name Details Category Date Date Treatment Clinician Date Multiple Multiple Problem Active Bobby ge complicati Complicati 6-17 Fa get ons due to ons Due to 00:00: Pr actic type 2 Type 2 00 e diabetes Diabetes mellitus Mellitus Obstructiv Obstructiv Problem Active 2018-09 [place] [facility] sleep e Sleep 2-10 Family apnea Apnea 00:00: Practic syndrome Syndrome 00 e Essential Essential Problem Active Radha darlyn hypertensi Hypertensi 2-05 Fa get on on 00:00: Practic 00 e Type 2 Type 2 Problem Active 2017-09 [facility] diabetes Diabetes 0-30 Family mellitus Mellitus 00:00: Practi c 00 e 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 0-30 Family 00:00: Practic 00 e Hyperlipid Hyperlipid Problem Active 2016-09 [place] emia emia 0-04 Family 00:00: Practic 00 e Obesity Obesity Problem Active 2016-09 [place] 0-04 Family 00:00: Practic 00 e Diabetes Diabetes Disease Active [place] mellitus mellitus Method i st Glaucoma Glaucoma Disease Active [place] Method[facility] HL HL Disease Active [place] (hearing (hearing Method i loss) loss) 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 Me thodi st Allergies, Adverse Reactions, Alerts Allergy Allergy Status Severity Reaction(s) Onset Inactive Treating Comm ents Source Name Type Date Date Clinician Sulfa DA Active [facility] [facility] (Sulfona 6-20 [facility] Antibiot 00 l of ics) [place] Sulfa Propensi Active Itching 2017-09 [place] (Sulfona ty to 2-12 Methodi mide adverse 00:00: st Antibiot reaction 00 ics) s to drug Sulfacet Allergy Active [place] amide to Family substanc Practic e e Family History Family Member Diagnosis Comments Start Date Stop Date Source Natural father Heart disease [place] [facility] Natural mother Cancer [facility] [place] [facility] thodist Natural mother Diabetes [facility] [place] [facility] Natural mother Heart disease [place] [facility] Natural mother Stroke [facility] [place] [facility] Natural sister Diabetes [facility] [place] [facility] Natural sister Heart disease [place] [facility] Natural sister Stroke [facility] [place] [facility] Social History Social Habit Start Date Stop Date Quantity Comments Source History [facility] Alcohol Std Drinks History [facility] Alcohol Binge Sex Assigned At [facility] ethodist Tobacco use and 2018-08-28 2018-08-28 Never used [facility] ethodist exposure 00:00:00 00:00:00 Alcohol intake 2018-08-28 2018-08-28 Current [facility] [place] [facility] thodist 00:00:00 00:00:00 non-drinker of alcohol (finding) History SDOH 2018-08-28 2018-08-28 1 [place] [facility] Alcohol Frequency 00:00:00 00:00:00 Smoking Status Start Date Stop Date Source Never smoker [place] Methodis t Medications Ordered Filled Start Stop Current Ordering Indication Dosage Frequency Signature Comments Components Source Medication Medication Date Date Medication? Clinician (SIG) Name Name losartan 2017-09 Yes 50mg QD Take 50 mg Shaina ston (COZAAR) 50 2-12 by mouth Meth oumar MG tablet 10:15: daily. st 30 traMADol 2017-09 Yes 50mg Q24H Take 50 mg Shaina ston (ULTRAM) 50 2-12 by mouth Meth oumar mg tablet 10:15: daily as st 30 needed for moderate pain. docusate 2017-09 Yes 50 Q.5D Take by [place] sodium 2-12 mouth 2 [facility] (COLACE) 50 10:15: (two) st MG capsule 30 times a day. COMFORT EZ 2017-09 Yes [place] SYRINGE 1 1-13 Methodi mL 31 gauge 00:00: st x 01/30 00 syringe NOVOLIN 2017-09 Yes [place] 70/30 U-100 1-12 [facility] INSULIN 100 00:00: st unit/mL 00 (70-30) injection COMFORT EZ 2017-09 Yes [place] SYRINGE 1 1-12 Methodi mL 30 gauge 00:00: st x 01/30 00 syringe atorvastati 2017-09 Yes 80mg QD 80 mg [place] (LIPITOR) 0-18 nightly. Meth oumar 80 MG 00:00: st tablet 00 amLODIPine Yes 5mg QD Take 5 mg [place] (NORVASC) 5 9-06 by mouth Meth oumar mg tablet 00:00: daily. st 00 Accu-Chek Accu-Chek No Accu-Chek [place] Annalisa Plus Annalisa Plus Annalisa Plus Family test strips test strips test P ractic strips e BD Insulin BD Insulin No BD Insulin [place] Syringe Syringe Syringe Family Ultra-Fine Ultra-Fine Ultra-Fine Practic 0.5 mL 31 0.5 mL 31 0.5 mL 31 e gauge x gauge x gauge x 16" 16" 01/30" losartan 50 losartan 50 No 1 Q1D losartan [place] mg tablet mg tablet 50 mg Fami ly Take 1 Take 1 tablet Practic tablet tablet Take 1 e every day every day tablet by oral by oral every day route in route in by oral the the route in morning. morning. the morning. Novolin Novolin No 54unit( BID Novolin Radha darlyn 70/30 U-100 70/30 U-100 s) 70/30 Family Insulin 100 Insulin 100 U-100 Practic unit/mL unit/mL Insulin e subcutaneou subcutaneou 100 s s unit/mL suspension suspension subcutaneo Inject 54 Inject 54 us units twice units twice suspension a day by a day by Inject 54 subcutaneou subcutaneou units s route s route twice a before before day by meals. meals. subcutaneo us route before meals. tramadol 50 tramadol 50 No 1 Q6H tramadol [place] mg tablet mg tablet 50 mg Fami ly Take 1 Take 1 tablet Practic tablet tablet Take 1 e every 6 every 6 tablet hours by hours by every 6 oral route oral route hours by as needed. as needed. oral route as needed. Travatan Travatan No Travatan Radha darlyn (with (with (with Family benzalkoniu benzalkoniu benzalkoni Practic m) 0.004 % m) 0.004 % um) 0.004 e eye drops eye drops % eye INSTILL 1 INSTILL 1 drops DROP INTO DROP INTO INSTILL 1 AFFECTED AFFECTED DROP INTO EYE(S) BY EYE(S) BY AFFECTED OPHTHALMIC OPHTHALMIC EYE(S) BY ROUTE ONCE ROUTE ONCE OPHTHALMIC DAILY INTHE DAILY INTHE ROUTE ONCE EVENING EVENING DAILY INTHE EVENING Tylenol [facility] Ar[facility] Arthritis Family Pain Pain Pain Practic e Immunizations Ordered Immunization Filled Immunization Date Status Commen ts Source Name Name influenza, influenza, 2020-05-17 Completed [facility] injectable, injectable, 00:00:00 Practice quadrivalent quadrivalent Vital Signs Vital Name Observation Time Observation Value Comments Source BP Diastolic 2020-06-15 00:00:00 76 mm[Hg] [facility] Height 2020-06-15 00:00:00 62 [in_i] [facility] BMI (Body Mass 2020-06-15 00:00:00 31.1 kg/m2 [facility] Index) Practice BP Systolic 2020-06-15 00:00:00 165 mm[Hg] [facility] Body Weight 2020-06-15 00:00:00 170 [lb_av] [facility] Procedures Procedure Date / Time Performed Performing Clinician [facility] e Knee Replacement 2019-03-17 00:00:00 [facility] Adrien rogers Practice Extraction of Cataract 2017-04-17 00:00:00 Bobby ge [facility] Complete Repair of 2017-03-17 00:00:00 [facility] Kusum escobedo Rotator Cuff Practice Plan of Care Planned Activity Planned Date Details Comments Source Future Scheduled 2020-04-17 INFLUENZA VACCINE [facility] 00:00:00 [code = INFLUENZA VACCINE] Future Scheduled 2012 65+ PNEUMOCOCCAL [place] [facility] 00:00:00 VACCINE (1 of 1 - PPSV23) [code = 65+ PNEUMOCOCCAL VACCINE (1 of 1 - PPSV23)] Future Scheduled 1997 BREAST CANCER [place] [facility] Test 00:00:00 SCREENING [code = BREAST CANCER SCREENING] Future Scheduled 1997 COLONOSCOPY SCREENING [place] [facility] 00:00:00 [code = COLONOSCOPY SCREENING] Future Scheduled 1997 SHINGLES VACCINES (#1) [place] [facility] 00:00:00 [code = SHINGLES VACCINES (#1)] Future Scheduled 1957 DIABETES: RETINAL EYE [place] [facility] 00:00:00 EXAM [code = DIABETES: RETINAL EYE EXAM] Future Scheduled 1957 DIABETIC FOOT EXAM [place] [facility] Test 00:00:00 [code = DIABETIC FOOT EXAM] Encounters Start End Encounter Admission Attending Care Care Encounter Source Date/Time Date/Time Type Type Clinicians Facility Department ID 2020-08-15 2020-08-15 Urgent Provider, [facility] [id number] [id number] 10:27:43 11:39:22 Care [facility] [id number] Care [place] [id number] Professio [phone] [address]al [address] 2020-06-15 2020-06-15 Eladio VFP [place] - [id number] V [facility] 00:00:00 00:00:00 [facility] Anais Mauricio - Pracmaninder morelos MD: [id number] VM_HOU_Jacob moreira [address] [address] , Ph. Results Test Description Test Time Test Comments Results Result Comments Source GLUBED 2019-03-26 12:42:00 Test Item Value Reference Range Interpretation Comme nts GLUBED (test code = GLUBED) 123 mg/dL 60-125 N - XR KNEE 1 OR 2 V [id number] 11:51:00 Patient Name: LAURI BOYKIN Unit No: [id number] EXAMS: CPT CODE: [id number] XR KNEE 1 OR 2 [place] [address] AP AND LATERAL VIEW OF THE RIGHT KNEE COMMENT:Patient is status post total right knee arthroplasty. The prosthesis appears to be in good pos ition. No evidence of periprosthetic fracture. at 1151 Reported and signed by: Blessing Marinelli MD CC: Rod Cantrell MD Technologist: VIRGIL FOUNTAIN RT(R) Transcribed D/ (6536) MichelleG [facility] NAME: LAURI BOYKIN [address] [facility] PHYS: Rod Ojeda MD : 1945 AGE: 74 SEX: F [place], [place] [address] LOC: Y.302 A PHONE #: [phone] EXAM DATE: 03/25/2019 STATUS: ADM IN FAX #: [phone] RAD #: D/C DT PAGE 1 Signed Report Patient Name: LAURI BOYKIN Unit No: [id number] EXAMS: CPT CODE: [id number] XR KNEE 1 OR 2 V RT [id number] <Continued> Orig Print D/T: S: 03/26/2019 (2356) [facility] NAME: LAURI BOYKIN [address] [place] [address] PHYS: Rod Ojeda MD : 1945 AGE: 74 SEX: F [place] [address] LOC: Y.302 A PHONE #: [phone] EXAM DATE: 03/25/2019 STATUS: ADM IN FAX #: [phone] RAD #: D/C DT PAGE 2 Signed ReportBASIC METABOLIC [id number] 06:38:00 Test Item Value Reference Range Interpretation Comments SODIUM (test code = 139 mmol/L 136-145 N NA) POTASSIUM (test code = 4.7 mmol/L 3.5-5.1 N K) CHLORIDE (test code = 102.0 mmol/L 98-107 N CL) CARBON DIOXIDE (test 25.0 mmol/L 21-32 N code = CO2) GLUCOSE (test code = 161 mg/dL 70-110 H GLU) BLOOD UREA NITROGEN 40 mg/dL 7-18 H (test code = BUN) GLOMERULAR FILTRATION 27.1 >60 Unit o f measure: RATE (test code = GFR) mL/mi n/1.73 [id number] Range:Healthy Adults >90 mL/min/1.73 m2 For Chronic Kidney Disease: St age II Mild Decrease in GFR 60-90 St age III Moderate Decrease in GFR 30-59 Stage IV Severe Decre ase in GFR 15- 29 Stage V Kidney Failure <15 CREATININE (test code 1.83 mg/dL 0.55-1.30 H = CREAT) CALCIUM (test code = 9.0 mg/dL 8.2-10.1 N CA) HGB [id number] 05:54:00 Test Item Value Reference Range Interpretation Comments HEMOGLOBIN (test code = HGB) 12.7 g/dL 12-16 N HEMATOCRIT (test code = HCT) 38.1 % 37-47 N [id number] 05:51:00 Test Item Value Reference Range Interpretation Comments GLUBED (test code = GLUBED) 164 mg/dL 60-125 H [id number] 20:09:00 Test Item Value Reference Range Interpretation Comments GLUBED (test code = GLUBED) 282 mg/dL 60-125 H [id number] 16:54:00 Test Item Value Reference Range Interpretation Comments GLUBED (test code = GLUBED) 275 mg/dL 60-125 H [id number] 08:42:00 Test Item Value Reference Range Interpretation Comments GLUBED (test code = GLUBED) 183 mg/dL 60-125 H [id number] 06:44:00 Test Item Value Reference Range Interpretation Comments GLUBED (test code = GLUBED) 191 mg/dL 60-125 H COMPREHENSIVE METABOLIC [id number] 11:22:00 Test Item Value Reference Range Interpretation Comments SODIUM (test code = 144 mmol/L 136-145 N NA) POTASSIUM (test code = 4.9 mmol/L 3.5-5.1 N K) CHLORIDE (test code = 107.0 mmol/L 98-107 N CL) CARBON DIOXIDE (test 26.9 mmol/L 21-32 N code = CO2) GLUCOSE (test code = 152 mg/dL 70-110 H GLU) BLOOD UREA NITROGEN 33 mg/dL 7-18 H (test code = BUN) GLOMERULAR FILTRATION 29.2 >60 Unit o f measure: RATE (test code = GFR) mL/mi n/1.73 [id number] Range:Healthy Adults >90 mL/min/1.73 m2 For Chronic Kidney Disease: St age II Mild Decrease in GFR 60-90 St age III Moderate Decrease in GFR 30-59 Stage IV Severe Decre ase in GFR 15- 29 Stage V Kidney Failure <15 CREATININE (test code 1.72 mg/dL 0.55-1.30 H = CREAT) TOTAL PROTEIN (test 7.6 g/dL 6.4-8.2 N code = PROT) ALBUMIN (test code = 3.9 g/dL 3.4-5.0 N ALB) GLOBULIN (test code = 3.7 g/dL 2.2-4.2 N GLOB) ALBUMIN/GLOBULIN RATIO 1.1 0.7-2.0 N (test code = A/G) CALCIUM (test code = 9.8 mg/dL 8.2-10.1 N CA) BILIRUBIN TOTAL (test 0.89 mg/dL 0.2-1.00 N code = BILT) SGOT/AST (test code = 48.0 U/L 15-37 H AST) SGPT/ALT (test code = 71.0 U/L 12-78 N Please note new ALT) normal range. ALKALINE PHOSPHATASE 74 U/L 46-116 N TOTAL (test code = ALKP) CBC W/AUTO [id number] 11:05:00 Test Item Value Reference Range Interpretation Comments WHITE BLOOD CELL (test code = WBC) 8.1 K/mm3 5.8-11.0 N RED BLOOD CELL (test code = RBC) 4.84 M/mm3 4.2-5.4 N HEMOGLOBIN (test code = HGB) 14.5 g/dL 12-16 N HEMATOCRIT (test code = HCT) 42.8 % 37-47 N MEAN CELL VOLUME (test code = MCV) 88 fL 80-98 N MEAN CELL HGB (test code = MCH) 30.0 pg 27-34 N MEAN CELL HGB CONCENTRATION (test 33.9 g/dL 30.8-34.1 N code = MCHC) RED CELL DISTRIBUTION WIDTH (test 13.4 % 11-16 N code = RDW) PLT (test code = PLT) 212 K/mm3 130-400 N MEAN PLATELET VOLUME (test code = 13.0 fL 8.9-12.1 H MPV) NEUTROPHIL % (test code = NT%) 59.1 % 45-70 N LYMPHOCYTE % (test code = LY%) 28.6 % 20-40 N MONOCYTE % (test code = MO%) 9.6 % 3-10 N EOSINOPHIL % (test code = EO%) 2.0 % 1-5 N BASOPHIL % (test code = BA%) 0.6 % 0.0-1.1 N NEUTROPHIL # (test code = NT#) 4.80 K/mm3 2.00-7.50 N LYMPHOCYTE # (test code = LY#) 2.32 K/mm3 1.50-4.00 N MONOCYTE # (test code = MO#) 0.78 K/mm3 0.2-0.8 N EOSINOPHIL # (test code = EO#) 0.16 K/mm3 0.04-0.4 N BASOPHIL # (test code = BA#) 0.05 K/mm3 0.02-0.10 N MANUAL DIFF REQUIRED (test code = NO MANUAL DIFF MDIFF) NUCLEATED RED BLOOD CELL (test 0 % 0-0 N code = NRBC)
--- OUTSIDE RECORDS SUMMARY | 2020-08-19 10:27 | XMS REPORT | Encounter Summary ---
:1945 Author Care Team Providers Name Role Phone Dr. Eladio Lou Primary Care Provider [phone] Mathieu Hager MD Primary Care Provider [phone] Reason for Visit diabetes Instructions 1. Type [...] Code System Name Reaction Severity Status Onset 13273 RxNorm Sulfacetamide Hives Active Problems Name Status [...] Index 30+ - Obesity Eladio Mauricio MD: [id number] [facility], [facility] [address], [place] [address], Ph. History of Present Illness Diabetes F/U Reported By: Patient HPI: Review finger sticks: fastin s to 130s, pre dinner: 70s to 230s. Context: seeing eye doctor r egularly. Associated Symptoms: no weight gain, no weight loss, no inc reased thirst, no increased urination, no blurred vision, numbness of feet Note: Her visit is an audio visit [...]
[2020-08-19 11:28] LABS: Absolute Lymphocytes (CBC) 0.9 K/uL (0.7-4.9); Basophils % 0.4 % (0-1.3); Hematocrit 47.5 % (36.0-45.0); Lymphocytes % 12.8 % (15.3-44.8); MPV 10.8 fL (7.6-11.3); RBC Red Blood Cell Count 5.27 M/uL (3.86-4.86)
[2020-08-19] MEDS ORDERED: LEVALBUTEROL 1.25 MG/3 ML NEB ONE (11:29)
[2020-08-19] MEDS ORDERED: dexAMETHasone 10 MG/ML VIAL ONE (11:29)
[2020-08-19 11:35] LABS: Protime INR 1.16
--- NOTE | 2020-08-19 11:49 | RAD REPORT ---
EXAM DESCRIPTION: RAD - Chest Single View - 08/19/2020 10:53 am CLINICAL HISTORY: CONGESTION, fever chills, COVID positive 3 days earlier COMPARISON: Two view chest July 2016 TECHNIQUE: AP portable chest image was obtained 08/19/2020 10:53 am . FINDINGS: Lung volumes are low. Minimal patchy opacification is present in the left base. This is a finding. Minimal left base infiltrate is possible. No failure or volume overload findings. Trachea is midline. Heart and vasculature are normal. No measurable pleural effusion and no pneumothorax. No ac tule river bony abnormality seen. No acute aortic findings suspected. IMPRESSION: Minimal patchy opacification at the left base on shallow inspiration exam. No significan t failure or volume overload. Left base finding may simply be atelectasis. Minimal infiltrate is possible. No specific findings to indicate COVID-[address] imaging is more sensitive for early COVID-19 pneumonia and could be p erformed if it would alter medical management.
[2020-08-19 11:50] LABS: ALT/SGPT 68 U/L (12-78); AST/SGOT 70 U/L (15-37); Albumin 3.5 g/dL (3.4-5.0); Alkaline Phosphatase 70 U/L (45-117); BUN Blood Urea Nitrogen 32 mg/dL (7-18); Bicarbonate 18 mmol/L (21-32); Bilirubin Direct < 0.1 mg/dL (0-0.2); Bilirubin Total 0.5 mg/dL (0.2-1.0); Ferritin 897.2 ng/mL (8-388); Glucose Level 140 mg/dL (74-106); Lipase 467 U/L (73-393); Potassium 4.2 mmol/L (3.5-5.1); Protein, Total 8.2 g/dL (6.4-8.2); Sodium Level 136 mmol/L (136-145); Troponin (Emerg Dept Use Only) < 0.02 ng/mL (0.0-0.045)
[2020-08-19] MEDS ORDERED: ENOXAPARIN 80 MG/0.8 ML SQ ONE (12:18)
--- NOTE | 2020-08-19 12:25 | RAD REPORT ---
EXAM DESCRIPTION: CT - Chest For Pe Angio - 08/19/2020 12:03 pm CLINICAL HISTORY: DYSPNEAfever, shortness of breath, positive COVID test 3 days earlier COMPARISON: Chest Single View dated 08/19/2020 TECHNIQUE: Dynamically enhanced 3 mm thick images of the chest were obtained during administration o f approximately 150mL Isovue 370 IV contrast. Coronal and oblique MIP reconstruction images were gene rated and reviewed. Exam utilizes a protocol to evaluate the pulmonary arterial tree. All CT scans are performed using dose optimization technique as appropriate and may include automated exposure control or mA/KV adjustment according to patient size. FINDINGS: No pulmonary emboli are identified. The aorta as imaged shows no acute or suspicious finding. No pericardial thickening or effusion. No large mass or consolidation. Patient has minimal ground-glass opacification posterior left upper l obe and in the lingula of the left upper lobe. Respiratory motion accentuates the interstitial patter n in each lung base. Minimal ground-glass opacities are present in each lower lobe. Opacification is most pronounced in the right retro hilar region. No cavitation identified. There are no endobronchial lesions. No pleural effusion or pleural thickening. Patient has a 5 millimeter subpleural nodule posterior superior left upper lobe. No other nodule or m ass seen. No mediastinal or hilar suspicious masses. No chest wall masses or abnormal axillary lymphadenopathy. IMPRESSION: No pulmonary emboli identified. Patchy ground-glass opacification present in the lung santiago. In a patient with a positive COVID test , lung parenchymal findings are most likely minimal COVID-19 pneumonia. A 5 mm superior left upper lobe pulmonary nodule is present. If the patient has no risk factors for c ancer, no additional follow-up is needed. If the patient is considered elevated risk, repeat CT chest imaging could be performed in 12 months.
--- NOTE | 2020-08-19 13:51 | ER ---
Nurse's Notes [facility] Name: Delores Mccarthy Age: 75 yrs Sex: Female : 1945 Arrival Date: 08/19/2020 Time: 10:15 Bed 7 Private MD: Diagnosis: Pneumonia, unspecified organism-COVID Presentation: 08/19 10:16 Chief complaint: EMS states: FEVER AND SOB, +COVID 3 DAYS AGO. Coronavirus screen: bp Client presents with at least one sign or symptom that may indicate coronavirus-19. Standard/surgical mask placed on the client. Provider contacted for isolation considerations. Client reports previous positive COVID test result. Ebola Screen: No symptoms or risks identified at this time. Initial Sepsis Screen: Does the patient meet any 2 criteria? HR > 90 bpm. No. Patient's initial sepsis screen is negative. Does the patient have a suspected source of infection? Yes: Productive cough/pneumonia. Risk Assessment: Do you want to hurt yourself or someone else? Patient reports no desire to harm self or others. Onset of symptoms is unknown. 10:16 Method Of Arrival: EMS: [facility] bp 10:16 Acuity: BLAINE 3 bp Triage Assessment: 10:16 General: Appears in no apparent distress. uncomfortable, ill, Behavior is cooperative, bp appropriate for age, anxious. Pain: Denies pain. EENT: No deficits noted. Neuro: No deficits noted. Cardiovascular: No deficits noted. Respiratory: Reports shortness of breath cough that is Onset: The symptoms/episode began/occurred 3 DAYS AGO, the patient has moderate shortness of breath. GI: No signs and/or symptoms were reported involving the gastrointestinal system. : No signs and/or symptoms were reported regarding the genitourinary system. Derm: No deficits noted. Musculoskeletal: No deficits noted. Historical: - Allergies: 12:45 Sulfa (Sulfonamide Antibiotics); bp - Home Meds: 12:45 Humulin N Pen 100 unit/mL (3 mL) Sub-Q inpn [Active]; losartan oral oral [Active]; bp - PMHx: 12:45 Diabetes - IDDM; Renal Disease; bp - Immunization history:: Adult Immunizations. - Social history:: Smoking status: Patient denies any tobacco usage or history of. Screenin:23 Abuse screen: Denies threats or abuse. Denies injuries from another. Nutritional bp screening: No deficits noted. Tuberculosis screening: No symptoms or risk factors identified. Fall Risk None identified. Ambulatory Aid-. Assessment: 10:16 General: SEE TRIAGE NOTE. Neuro: No deficits noted. Cardiovascular: Rhythm is sinus bp tachycardia. Respiratory: Airway is patent Respiratory effort is even, labored, Breath sounds are coarse bilaterally. GI: No signs and/or symptoms were reported involving the gastrointestinal system. : No signs and/or symptoms were reported regarding the genitourinary system. EENT: No deficits noted. Derm: No deficits noted. Musculoskeletal: No deficits noted. 11:29 Reassessment: Patient appears in no apparent distress at this time. No changes from bp previously documented assessment. Patient and/or family updated on plan of care and expected duration. Pain level reassessed. 12:38 Reassessment: No changes from previously documented assessment. Patient and/or family bp updated on plan of care and expected duration. Pain level reassessed. PT RETURNED FROM CT. ALL CURRENT ORDERS COMPLETED. 13:30 Reassessment: PT ATTEMPTING TO DECLINE D/C, STATING SHE "JUST WANTS TO BE SURE." bp INFORMED. Vital Signs: 10:16 BP 92 / 61; Pulse 101; Resp 17; Temp 98.9; Pulse Ox 98% on 2 lpm NC; Weight 77.11 kg; bp Height 5 ft. 2 in. (157.48 cm); 11:15 BP 126 / 64; Pulse 100; Resp 16; Pulse Ox 98% ; bp 12:38 BP 103 / 73; Pulse 101; Resp 17; Pulse Ox 97% on 2 lpm NC; bp 13:30 BP 99 / 60; Pulse 90; Resp 16; Pulse Ox 96% on R/A; bp 10:16 Body Mass Index 31.09 (77.11 kg, 157.48 cm) bp ED Course: 10:15 Patient arrived in ED. bp 10:16 Arm band placed on. bp 10:17 Dustin Landeros MD is Attending Physician. kdr 10:18 Triage completed. bp 10:23 Patient has correct armband on for positive identification. Bed in low position. Call bp light in reach. Side rails up X2. 10:39 Mtahieu Delarosa, LESLIE is Primary Nurse. bp 10:51 CXR XRAY In Process Unspecified. EDMS 11:05 Inserted saline lock: 20 gauge in right forearm, using aseptic technique. Blood bp collected. 12:03 CT Chest For PE Angio In Process Unspecified. EDMS 14:26 No provider procedures requiring assistance completed. IV discontinued, intact, jl7 bleeding controlled, No redness/swelling at site. Pressure dressing applied. Administered Medications: 10:50 Drug: Decadron - Dexamethasone 6 mg Route: IVP; Site: right forearm; bp 11:47 Follow up: Response: No adverse reaction bp 10:50 Drug: Xopenex (3) 1.25 mg Route: Inhalation; bp 11:55 Drug: Lovenox 1 mg/kg Route: Sub-Q; Site: right lower abdomen; bp 12:56 Follow up: Response: No adverse reaction bp Outcome: 13:49 Discharge ordered by . kdr 14:26 Discharged to home ambulatory. jl7 14:26 Condition: stable 14:26 Discharge instructions given to patient, Instructed on discharge instructions, follow up and referral plans. medication usage, Demonstrated understanding of instructions, follow-up care, medications, Prescriptions given X 3. 14:27 Patient left the ED. jl7 Signatures: Dispatcher [employer] EDMS Dustin Landeros MD MD kdr Walter Rene RN RN jl7 Mathieu Delarosa, RN RN bp Corrections: (The following items were deleted from the chart) 11:47 10:16 BP 92 / 61; Pulse 101bpm; Resp 17bpm; Pulse Ox 98% 2 lpm Nasal Cannula; Temp bp 98.9F; bp 12:47 12:38 BP 82 / 63; Pulse 101bpm; Resp 17bpm; Pulse Ox 97% 2 lpm Nasal Cannula; bp bp
--- NOTE | 2020-08-19 13:51 | EDPHYS ---
Physician Documentation [facility] Name: Delores Mccarthy Age: 75 yrs Sex: Female : 1945 Arrival Date: 08/19/2020 Time: 10:15 Bed 7 Private MD: ED Physician Dustin Landeros HPI: 08/19 17:04 This 75 yrs old Female presents to ER via EMS with complaints of Fever, kdr Shortness Of Breath. 17:04 The patient reports fever, not measured (subjective). kdr 17:08 Onset: The symptoms/episode began/occurred gradually, 4 day(s) ago. Severity of kdr symptoms: At their worst the symptoms were mild, in the emergency department the symptoms are unchanged. Modifying factors: The symptoms are alleviated by Coughing. Associated signs and symptoms: Pertinent positives: fever. The patient has not experienced similar symptoms in the past. The patient has been recently seen by a physician: The patient was seen in [place] and tested for COVID on Sunday. They called to tell her Sunday that she was positive. Historical: - Allergies: 12:45 Sulfa (Sulfonamide Antibiotics); bp - Home Meds: 12:45 Humulin N Pen 100 unit/mL (3 mL) Sub-Q inpn [Active]; losartan oral oral [Active]; bp - PMHx: 12:45 Diabetes - IDDM; Renal Disease; bp - Immunization history:: Adult Immunizations. - Social history:: Smoking status: Patient denies any tobacco usage or history of. ROS: 17:08 Constitutional: Negative for fever, chills, and weight loss, Eyes: Negative for injury, kdr pain, redness, and discharge, ENT: Negative for injury, pain, and discharge, Neck: Negative for injury, pain, and swelling, Cardiovascular: Negative for chest pain, palpitations, and edema, Abdomen/GI: Negative for abdominal pain, nausea, vomiting, diarrhea, and constipation, Back: Negative for injury and pain, : Negative for injury, bleeding, discharge, and swelling, MS/Extremity: Negative for injury and deformity, Skin: Negative for injury, rash, and discoloration, Neuro: Negative for headache, weakness, numbness, tingling, and seizure activity. Psych: Negative for depression, anxiety, suicide ideation, homicidal ideation, and hallucinations, Allergy/Immunology: Negative for hives, rash, and allergies, Endocrine: Negative for neck swelling, polydipsia, polyuria, polyphagia, and marked weight changes, Hematologic/Lymphatic: Negative for swollen nodes, abnormal bleeding, and unusual bruising. 17:08 Respiratory: Positive for cough, with yellow sputum, dyspnea on exertion, shortness of breath, on exertion. Negative for hemoptysis, orthopnea, pleurisy, wheezing. Exam: 14:18 ECG was reviewed by the Attending Physician. kdr 17:08 Constitutional: This is a well developed, well nourished patient who is awake, alert, kdr and in no acute distress. Head/Face: Normocephalic, atraumatic. Eyes: Pupils equal round and reactive to light, extra-ocular motions intact. Lids and lashes normal. Conjunctiva and sclera are non-icteric and not injected. Cornea within normal limits. Periorbital areas with no swelling, redness, or edema. Neck: Trachea midline, no thyromegaly or masses palpated, and no cervical lymphadenopathy. Supple, full range of motion without nuchal rigidity, or vertebral point tenderness. No Meningismus. Chest/axilla: Normal chest wall appearance and motion. Nontender with no deformity. No lesions are appreciated. Cardiovascular: Regular rate and rhythm with a normal S1 and S2. No gallops, murmurs, or rubs. Normal PMI, no JVD. No pulse deficits. Respiratory: Lungs have equal breath sounds bilaterally, clear to auscultation and percussion. No rales, rhonchi or wheezes noted. No increased work of breathing, no retractions or nasal flaring. Abdomen/GI: Soft, non-tender, with normal bowel sounds. No distension or tympany. No guarding or rebound. No evidence of tenderness throughout. Back: No spinal tenderness. No costovertebral tenderness. Full range of motion. Skin: Warm, dry with normal turgor. Normal color with no rashes, no lesions, and no evidence of cellulitis. MS/ Extremity: Pulses equal, no cyanosis. Neurovascular intact. Full, normal range of motion. Neuro: Awake and alert, GCS 15, oriented to person, place, time, and situation. Cranial nerves II-XII grossly intact. Motor strength 5/5 in all extremities. Sensory grossly intact. Cerebellar exam normal. Normal gait. Psych: Awake, alert, with orientation to person, place and time. Behavior, mood, and affect are within normal limits. Vital Signs: 10:16 BP 92 / 61; Pulse 101; Resp 17; Temp 98.9; Pulse Ox 98% on 2 lpm NC; Weight 77.11 kg; bp Height 5 ft. 2 in. (157.48 cm); 11:15 BP 126 / 64; Pulse 100; Resp 16; Pulse Ox 98% ; bp 12:38 BP 103 / 73; Pulse 101; Resp 17; Pulse Ox 97% on 2 lpm NC; bp 13:30 BP 99 / 60; Pulse 90; Resp 16; Pulse Ox 96% on R/A; bp 10:16 Body Mass Index 31.09 (77.11 kg, 157.48 cm) bp MDM: 13:49 Patient medically screened. kdr 17:08 Data reviewed: vital signs, nurses notes, lab test result(s), radiologic studies. kdr Counseling: I had a detailed discussion with the patient and/or guardian regarding: the historical points, exam findings, and any diagnostic results supporting the discharge/admit diagnosis, lab results, radiology results, the need for outpatient follow up. Physician consultation: Josiah Escobedo MD regarding consult, patient's condition, and will see patient in office, in 2-3 days, would like medications started, Solumedrol, Steroids with Rx at discharge. 08/19 10:34 Order name: Blood Culture Adult (2) kdr 08/19 10:34 Order name: BMP; Complete Time: 12:40 kdr 08/19 10:34 Order name: C-Reactive Protein; Complete Time: 12:40 kdr 08/19 10:34 Order name: CBC with Diff; Complete Time: 11:46 kdr 08/19 10:34 Order name: D-Dimer; Complete Time: 11:46 kdr 12 10:34 Order name: Ferritin; Complete Time: 12:40 kdr 12 10:34 Order name: Lactate; Complete Time: 11:46 kdr 12 10:34 Order name: LFT's; Complete Time: 12:40 kdr 08/19 10:34 Order name: Lipase; Complete Time: 12:40 kdr 08/19 10:34 Order name: Procalcitonin; Complete Time: 12:40 kdr 08/19 10:34 Order name: PT-INR; Complete Time: 11:46 kdr 08/19 10:34 Order name: Ptt, Activated; Complete Time: 11:46 kdr 08/19 10:34 Order name: Strep; Complete Time: 12:40 kdr 08/19 10:34 Order name: Troponin ([facility] Dept Use Only); Complete Time: 12:40 kdr 08/19 10:34 Order name: CXR XRAY; Complete Time: 12:40 kdr 08/19 10:34 Order name: EKG; Complete Time: 10:35 kdr 08/19 10:34 Order name: Cardiac monitoring; Complete Time: 11:12 kdr 08/19 10:34 Order name: Document PUI#; Complete Time: 11:11 kdr 08/19 10:34 Order name: Droplet/Contact Precautions; Complete Time: 11:11 kdr 08/19 10:34 Order name: EKG - Nurse/Tech; Complete Time: 11:28 kdr 08/19 10:34 Order name: IV Start; Complete Time: 11:11 kdr 08/19 10:34 Order name: Labs collected and sent; Complete Time: 11:11 kdr 08/19 11:45 Order name: CT Chest For PE Angio; Complete Time: 12:40 kdr 08/19 12:03 Order name: Throat Culture EDIN 08/19 10:34 Order name: [facility] [phone]/ ; Complete Time: 11:11 kdr 08/19 10:34 Order name: O2 Per Protocol; Complete Time: 11:11 kdr 08/19 10:34 Order name: O2 Sat Monitoring; Complete Time: 10:40 kdr EC:18 Rate is 89 beats/min. Rhythm is regular, Sinus Rhythm with No ectopy. QRS [place] is kdr Normal. GA interval is normal. QRS interval is normal. Clinical impression: NSR w/ Non-specific ST/T Changes. Administered Medications: 10:50 Drug: Decadron - Dexamethasone 6 mg Route: IVP; Site: right forearm; bp 11:47 Follow up: Response: No adverse reaction bp 10:50 Drug: Xopenex (3) 1.25 mg Route: Inhalation; bp 11:55 Drug: Lovenox 1 mg/kg Route: Sub-Q; Site: right lower abdomen; bp 12:56 Follow up: Response: No adverse reaction bp Disposition: 08/19/20 13:49 Discharged to Home. Impression: Pneumonia, unspecified organism - COVID. - Condition is Stable. - Discharge Instructions: Community-Acquired Pneumonia, Adult, COVID-19. - Prescriptions for Albuterol Sulfate 90 mcg/actuation - inhale 1-2 puff by INHALATION route every 4-6 hours; 1 Inhaler. prednisone 10 mg Oral tablet - take 1 tablet by ORAL route 2 times per day for 7 days Use this prescription last; 14 tablet. Prednisone 20 mg Oral Tablet - take 1 tablet by ORAL route every 12 hours for 7 days Use this prescription first; 14 tablet. - Medication Reconciliation Form, Thank You Letter form. - Follow up: Private Physician; When: 2 - 3 days; Reason: If symptoms return, Further diagnostic work-up, Recheck today's complaints, Continuance of care, Re-evaluation by your physician. - Problem is an ongoing problem. - Symptoms have improved. Signatures: Dispatcher [employer] [facility] Dustin Landeros MD MD kdr Walter Rene RN RN Mathieu Ma RN RN bp Corrections: (The following items were deleted from the chart) 11:11 10:34 Camacho ordered. kdr bp 11:25 10:35 Influenza Screen (A \T\ B)+BA.LAB.BRZ ordered. [facility] 14:27 13:49 08/19/2020 13:49 Discharged to Home. Impression: Pneumonia, unspecified organism jl7 - COVID. Condition is Stable. Forms are Medication Reconciliation Form, Thank You Letter, Antibiotic Education, Prescription Opioid Use. Follow up: Private Physician; When: 2 - 3 days; Reason: If symptoms return, Further diagnostic work-up, Recheck today's complaints, Continuance of care, Re-evaluation by your physician. Problem is an ongoing problem. Symptoms have improved. kdr
== END 2020-08-19 14:27 | disposition home or self-care (01) ==
LOC: ER 10:13
DX: U07.1 COVID-19 (principal); J18.9 Pneumonia, unspecified organism; E11.22 Type 2 diabetes mellitus with diabetic chronic kidney disease; N18.9 Chronic kidney disease, unspecified; Z88.2 Allergy status to sulfonamides
CPT/HCPCS: 93005; 87040 ×2; 87070; 85025; 80048; 36415; 85610; 85379; 80076; 87081; 83605; 85730; 84484; 82728; 83690; 84145; 86140; 71275; 71045; 96372; 96374; 99285; Q9967; J1100

== ENCOUNTER 2020-08-21 16:59 | Inpatient (IN) | payer OTHER ==
--- OUTSIDE RECORDS SUMMARY | 2020-08-21 17:01 | XMS REPORT | Clinical Summary ---
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
--- OUTSIDE RECORDS SUMMARY | 2020-08-21 17:02 | XMS REPORT | Continuity of Care Document ---
:1945 Author Organization [facility] t Address 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 0-30 Family 00:00: Practic 00 e Hyperlipid Hyperlipid Problem Active 2016-09 [place] [facility] emia 0-04 Family 00:00: Practic 00 e Obesity Obesity Problem Active 2016-09 [place] 0-04 Family 00:00: Practic 00 e Diabetes Diabetes Disease Active [place] mellitus mellitus [facility] Glaucoma Glaucoma Disease Active [place] [facility] HL HL Disease Active [place] (hearing (hearing Method i loss) loss) 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 Me thodi st Allergies, Adverse Reactions, Alerts Allergy Allergy Status Severity Reaction(s) Onset Inactive Treating Comm ents Source Name Type Date Date Clinician Sulfa DA Active [place] [facility] (Sulfona 6-20 [facility] Antibiot 00 l of ics) [place] Sulfa Propensi Active Itching 2017-09 [place] (Sulfona ty to 2-12 Methodi mide adverse 00:00: st Antibiot reaction 00 ics) s to drug Sulfacet Allergy Active [place] amide to Family substanc Practic e e Family History Family Member Diagnosis Comments Start Date Stop Date Source Natural father Heart disease [place] Sabian[facility] Natural mother Cancer [facility] [place] [facility] thodist Natural mother Diabetes [facility] [place] [facility] thodist Natural mother Heart disease [place] [facility] Natural mother Stroke [facility] thodist Natural sister Diabetes [facility] thodist Natural sister Heart disease [place] [facility] Natural sister Stroke [facility] [place] [facility] thodist Social History Social Habit Start Date Stop Date Quantity Comments Source History [facility] Meth odist Alcohol Std Drinks History [facility] Meth odist Alcohol Binge Sex Assigned At [facility] ethodist Tobacco use and 2018-08-28 2018-08-28 Never used [facility] ethodist exposure 00:00:00 00:00:00 Alcohol intake 2018-08-28 2018-08-28 Current [facility] [place] [facility] thodist 00:00:00 00:00:00 non-drinker of alcohol (finding) History SDOH 2018-08-28 2018-08-28 1 [place] Meth odist Alcohol Frequency 00:00:00 00:00:00 Smoking Status Start Date Stop Date Source Never smoker [place] Methodis t Medications Ordered Filled Start Stop [...] times a day. COMFORT EZ 2017-09 Yes [place] SYRINGE 1 1-13 Methodi mL 31 gauge 00:00: st x 01/30 00 syringe NOVOLIN 2017-09 Yes [place] 70/30 U-100 1-12 [facility] INSULIN 100 00:00: st unit/mL 00 (70-30) injection COMFORT EZ 2017-09 Yes [place] SYRINGE 1 1-12 Methodi mL 30 gauge [...] DAILY INTHE EVENING Tylenol T[facility] Arthritis Arthritis Family Pain Pain Pain Practic e Immunizations Ordered Immunization Filled Immunization Date Status Commen ts Source Name Name influenza, influenza, 2020-05-17 Completed [facility] injectable, injectable, 00:00:00 Practice quadrivalent quadrivalent Vital Signs Vital Name Observation Time Observation Value Comments Source BP Diastolic 2020-06-15 00:00:00 76 mm[Hg] [facility] Height 2020-06-15 00:00:00 62 [in_i] [facility] BMI (Body Mass 2020-06-15 00:00:00 31.1 kg/m2 [facility] Index) Practice BP Systolic 2020-06-15 00:00:00 165 mm[Hg] [facility] Body Weight 2020-06-15 00:00:00 170 [lb_av] [facility] Procedures Procedure Date / Time Performed Performing Clinician [facility] e Knee Replacement 2019-03-17 00:00:00 [facility] Adrien rogers Practice Extraction of Cataract 2017-04-17 00:00:00 Bobby ge [facility] Complete Repair of 2017-03-17 00:00:00 [facility] Kusum escobedo Rotator Cuff Practice Plan of Care Planned Activity Planned Date Details Comments Source Future Scheduled 2020-04-17 INFLUENZA VACCINE [facility] 00:00:00 [code = INFLUENZA VACCINE] Future Scheduled 2012 65+ PNEUMOCOCCAL [place] [facility] 00:00:00 VACCINE (1 of 1 - PPSV23) [code = 65+ PNEUMOCOCCAL VACCINE (1 of 1 - PPSV23)] Future Scheduled 1997 BREAST CANCER [place] [facility]ist Test 00:00:00 SCREENING [code = BREAST CANCER SCREENING] Future Scheduled 1997 COLONOSCOPY SCREENING [place] [facility] 00:00:00 [code = COLONOSCOPY SCREENING] Future Scheduled 1997 SHINGLES VACCINES (#1) [place] [facility] 00:00:00 [code = SHINGLES VACCINES (#1)] Future Scheduled 1957 DIABETES: RETINAL EYE [place] [facility] 00:00:00 EXAM [code = DIABETES: RETINAL EYE EXAM] Future Scheduled 1957 DIABETIC FOOT EXAM [place] [facility] 00:00:00 [code = DIABETIC FOOT EXAM] Encounters Start End Encounter Admission Attending Care Care Encounter Source Date/Time Date/Time Type Type Clinicians Facility Department ID 2020-08-15 2020-08-15 Urgent Provider, [facility] [id number] 10:27:43 11:39:22 Care [facility] [id number] Care [place] [id number] Professio [id number] [address]al [address] 2020-06-15 2020-06-15 El[place]io [facility] [place] - [id number] [place] 00:00:00 00:00:00 [facility] Anais Mauricio - Pracmaninder morelos MD: [id number] VM_HOU_Jacob moreira [address] [address] , Ph. Results Test Description Test Time Test Comments Results Result Comments Source GLUBED 2019-03-26 12:42:00 Test Item Value Reference Range Interpretation Comme nts GLUBED (test code = GLUBED) 123 mg/dL 60-125 N - XR KNEE 1 OR 2 V [id number] 11:51:00 Patient Name: LAURI BOYKIN Unit No: [id number] EXAMS: CPT CODE: [id number] XR KNEE 1 OR 2 [place] [id number] AP AND LATERAL VIEW OF THE RIGHT KNEE COMMENT:Patient is status post total right knee arthroplasty. The prosthesis appears to be in good pos ition. No evidence of periprosthetic fracture. at 1151 Reported and signed by: Blessing Marinelli MD CC: Rod Cantrell MD Technologist: VIRGIL FOUNTAIN RT(R) Transcribed D/ (2638) MichelleG [facility] NAME: LAURI BOYKIN [address] [facility] PHYS: Rod Ojeda MD : 1945 AGE: 74 SEX: F [place], [place] [address] LOC: Y.302 A PHONE #: [phone] EXAM DATE: 03/25/2019 STATUS: ADM IN FAX #: [phone] RAD #: D/C DT PAGE 1 Signed Report Patient Name: LAURI BOYKIN Unit No: [id number] EXAMS: CPT CODE: [id number] XR KNEE 1 OR 2 V RT [id number] <Continued> Orig Print D/T: S: 03/26/2019 (3680) [facility] NAME: LAURI BOYKIN [address] [place] [address] PHYS: Rod Ojeda MD : 1945 AGE: 74 SEX: F [place] [address] LOC: Y.302 A PHONE #: [phone] EXAM DATE: 03/25/2019 STATUS: ADM IN FAX #: [phone] RAD #: D/C DT PAGE 2 Signed ReportBASIC METABOLIC [id number] 06:38:00 Test Item Value Reference Range Interpretation [...] RATE (test code = GFR) mL/mi n/1.73 [id number] Range:Healthy Adults >90 mL/min/1.73 m2 For Chronic Kidney Disease: St age II Mild Decrease in GFR 60-90 St age III Moderate Decrease in GFR 30-59 Stage IV Severe Decre ase in GFR 15- 29 Stage V Kidney Failure <15 CREATININE (test code 1.83 mg/dL 0.55-1.30 H = CREAT) CALCIUM (test code = 9.0 mg/dL 8.2-10.1 N CA) HGB [id number] 05:54:00 Test Item Value Reference Range Interpretation Comments HEMOGLOBIN (test code = HGB) 12.7 g/dL 12-16 N HEMATOCRIT (test code = HCT) 38.1 % 37-47 N [id number] 05:51:00 Test Item Value Reference Range Interpretation Comments GLUBED (test code = GLUBED) 164 mg/dL 60-125 H [id number] 20:09:00 Test Item Value Reference Range Interpretation Comments GLUBED (test code = GLUBED) 282 mg/dL 60-125 H [id number] 16:54:00 Test Item Value Reference Range Interpretation Comments GLUBED (test code = GLUBED) 275 mg/dL 60-125 H [id number] 08:42:00 Test Item Value Reference Range Interpretation Comments GLUBED (test code = GLUBED) 183 mg/dL 60-125 H [id number] 06:44:00 Test Item Value Reference Range Interpretation Comments GLUBED (test code = GLUBED) 191 mg/dL 60-125 H COMPREHENSIVE METABOLIC [id number] 11:22:00 Test Item Value Reference Range Interpretation [...] RATE (test code = GFR) mL/mi n/1.73 [id number] Range:Healthy Adults >90 mL/min/1.73 m2 For Chronic [...] TOTAL (test code = ALKP) CBC W/AUTO [id number] 11:05:00 Test Item Value Reference Range Interpretation [...]
[2020-08-21 17:46] LABS: Basophils % 0.1 % (0-1.3); Lymphocytes % 7.1 % (15.3-44.8); MPV 10.5 fL (7.6-11.3); RBC Red Blood Cell Count 5.51 M/uL (3.86-4.86)
[2020-08-21] MEDS ORDERED: ACETAMINOPHEN 500 MG TAB ONE (17:53)
[2020-08-21] MEDS ORDERED: BENZONATATE 100 MG CAP PO ONE (17:53)
[2020-08-21] MEDS ORDERED: ALBUTEROL INHALER 60 PUFF/8 GM IH ONE (17:54)
[2020-08-21 17:57] LABS: Protime INR 0.99
--- NOTE | 2020-08-21 17:59 | RAD REPORT ---
EXAM DESCRIPTION: Lv Single View08/21/2020 5:49 pm CLINICAL HISTORY: Chest pain COMPARISON: August 19 FINDINGS: Worsening in bilateral pulmonary opacities. The heart is normal size IMPRESSION: Moderate left and [id number] right pulmonary opacities likely pneumonia
[2020-08-21 18:03] LABS: ALT/SGPT 58 U/L (12-78); AST/SGOT 57 U/L (15-37); Albumin 3.5 g/dL (3.4-5.0); Alkaline Phosphatase 70 U/L (45-117); BUN Blood Urea Nitrogen 44 mg/dL (7-18); Bicarbonate 22 mmol/L (21-32); Bilirubin Direct 0.1 mg/dL (0-0.2); Bilirubin Total 0.5 mg/dL (0.2-1.0); C-Reactive Protein 7.87 mg/L (<3.00); Glucose Level 130 mg/dL (74-106); Magnesium 2.4 mg/dL (1.8-2.4); NT PRO-BNP 119 pg/mL (<125); Potassium 4.6 mmol/L (3.5-5.1); Protein, Total 8.6 g/dL (6.4-8.2); Sodium Level 139 mmol/L (136-145); Troponin (Emerg Dept Use Only) < 0.02 ng/mL (0.0-0.045)
--- NOTE | 2020-08-21 18:47 | ER ---
Nurse's Notes [facility] Name: Delores Mccarthy Age: 75 yrs Sex: Female : 1945 Arrival Date: 08/21/2020 Time: 17:02 Bed 4 Private MD: Diagnosis: Pneumonia due to other specified infectious organisms;Coronavirus infection, unspecified Presentation: 08/21 17:02 Chief complaint: EMS states: Pt was diagnosed with covid on Sunday. She was here the ec1 day before yesterday. She's having sob and a cough. Her room air sat was 90% and I placed her on NC and it came up to 96%. She has a 20g in the left hand. I gave 125 mg solumedrol. She was ST in 130's on arrival and came down to 120's with oxygen. Coronavirus screen: Client reports previous positive COVID test result. Ebola Screen: Patient negative for fever greater than or equal to 101.5 degrees Fahrenheit, and additional compatible Ebola Virus Disease symptoms Patient denies exposure to infectious person. Patient denies travel to an Ebola-affected area in the 21 days before illness onset. Initial Sepsis Screen: Does the patient meet any 2 criteria? RR > 20 per min. HR > 90 bpm. Yes Does the patient have a suspected source of infection? Yes: Productive cough/pneumonia. Risk Assessment: Do you want to hurt yourself or someone else? Patient reports no desire to harm self or others. Onset of symptoms. 17:02 Method Of Arrival: EMS: [facility] ec1 17:02 Acuity: BLAINE 3 ec1 Historical: - Allergies: 17:03 Sulfa (Sulfonamide Antibiotics); sv 17:03 ambien; sv - PMHx: 17:03 Diabetes - IDDM; Renal Disease; sv - Immunization history:: Adult Immunizations unknown. - Social history:: Smoking status: Patient denies any tobacco usage or history of. Screenin:04 Abuse screen: Denies threats or abuse. Denies injuries from another. Nutritional sv screening: No deficits noted. Tuberculosis screening: No symptoms or risk factors identified. Fall Risk None identified. Assessment: 17:36 General: Appears uncomfortable, Behavior is calm, cooperative. Pain: Complains of pain ec1 in chest Pain began with coughing. Neuro: Level of Consciousness is awake, alert, obeys commands. Cardiovascular: Rhythm is sinus tachycardia. Respiratory: Respiratory effort is even, labored, Respiratory pattern is tachypnea Breath sounds are clear in right upper lobe, left upper lobe, right middle lobe and right lower lobe Breath sounds are diminished in left lower lobe. GI: No signs and/or symptoms were reported involving the gastrointestinal system. : No signs and/or symptoms were reported regarding the genitourinary system. EENT: No signs and/or symptoms were reported regarding the EENT system. Derm: No signs and/or symptoms reported regarding the dermatologic system. Musculoskeletal: No signs and/or symptoms reported regarding the musculoskeletal system. 18:54 Reassessment: No changes from previously documented assessment. Patient and/or family hb updated on plan of care and expected duration. Pain level reassessed. Patient is alert, oriented x 3, equal unlabored respirations, skin warm/dry/pink. 19:20 General: Appears in no apparent distress. Behavior is calm, cooperative, appropriate for age. Pain: Denies pain. Neuro: Level of Consciousness is awake, alert, obeys commands, Oriented to person, place, time, situation, Appropriate for age. Cardiovascular: Rhythm is sinus rhythm. Respiratory: Airway is patent Respiratory effort is even, labored, Respiratory pattern is tachypnea Breath sounds are clear Breath sounds are diminished. 20:00 Reassessment: Patient appears in no apparent distress at this time. No changes from previously documented assessment. Patient and/or family updated on plan of care and expected duration. Pain level reassessed. Patient is alert, oriented x 3, equal unlabored respirations, skin warm/dry/pink. Notified of wait time and room assignment. 21:00 Reassessment: Patient appears in no apparent distress at this time. Patient and/or family updated on plan of care and expected duration. Pain level reassessed. Patient is alert, oriented x 3, equal unlabored respirations, skin warm/dry/pink. 21:30 Reassessment: MD at bedside explaining POC need for admit. Vital Signs: 17:02 BP 158 / 86; Pulse 105; Resp 32; Temp 100.1(O); Pulse Ox 89% on R/A; sv 18:12 BP 146 / 66; Pulse 113; Resp 30; Pulse Ox 92% on 4 lpm NC; sv 18:30 BP 134 / 60; Pulse 103; Resp 38; Pulse Ox 94% on 35% Venturi mask; sv 20:00 BP 118 / 71; Pulse 78; Resp 24; Pulse Ox 94% on 35% Venturi mask; wh 21:30 BP 131 / 73; Pulse 79; Resp 22; Pulse Ox 95% on 35% Venturi mask; wh 17:02 Pt placed on O2 \T\ 4L per NC. sv ED Course: 17:02 Patient arrived in ED. ec1 17:03 Camilo Bond PA is PHCP. cp 17:03 Ousmane Ballard MD is Attending Physician. cp 17:03 Arm band placed on. sv 17:04 Patient has correct armband on for positive identification. Bed in low position. Call sv light in reach. Side rails up X2. awake overnight monitor on. Pulse ox on. NIBP on. Door closed. Head of bed elevated. 17:07 Triage completed. ec1 17:08 Maintain EMS IV. Dressing intact. Gauge \T\ site: 20G L hand. sv 17:10 Rika Villa, LESLIE is Primary Nurse. ec1 17:36 Inserted saline lock: 20 gauge in left hand, using aseptic technique. Blood collected. ec1 17:50 XRAY Chest (1 view) In Process Unspecified. EDMS 18:25 Oxygen administration via Venturi mask \T\ 9L/min - 35%. sv 18:45 Josiah Escobedo MD is Hospitalizing Provider. cp 19:08 Report given to Nereida NELSON and Manuel NELSON. sv 21:42 No provider procedures requiring assistance completed. Patient admitted, IV remains in wh place. Administered Medications: 17:50 Drug: Tessalon Perle 200 mg Route: PO; ec1 20:07 Follow up: Response: No adverse reaction wh 17:50 Drug: Tylenol 1000 mg Route: PO; ec1 20:07 Follow up: Response: No adverse reaction; Temperature is decreased wh 17:51 Drug: Albuterol HFA Inhaler 2 puffs Route: Inhalation; ec1 18:45 Drug: NS 0.9% 500 ml Route: IV; Rate: 500 ml/hr; Site: left hand; ec1 20:06 Follow up: Response: No adverse reaction; IV Status: Completed infusion 18:46 Drug: Rocephin 1 grams Route: IV; Rate: calculated rate; Site: left hand; ec1 20:07 Follow up: Response: No adverse reaction; IV Status: Completed infusion 18:46 Drug: Zithromax 500 mg Route: IVPB; Infused Over: 1 hrs; Site: left hand; ec1 20:07 Follow up: Response: No adverse reaction; IV Status: Completed infusion Outcome: 18:47 Decision to Hospitalize by Provider. cp 21:43 Admitted to ICU accompanied by tech, via wheelchair, room 6, with oxygen, with chart, Report called to Rika Braswell RN 21:43 Condition: stable 21:43 Instructed on the need for admit. 21:43 Patient left the ED. Signatures: Dispatcher [employer] EDKaycee Liu RN RN sv Page, Corey, PA PA cp Baxter, Heather, Manuel Grajeda RN Rika Villa RN RN ec1 Corrections: (The following items were deleted from the chart) 17:04 17:02 BP 158 / 86; Pulse 116bpm; Resp 20bpm; Pulse Ox 89% RA; Pt placed on O2 \T\ 4L per sv NC.; sv 17:06 17:02 BP 158 / 86; Pulse 105bpm; Resp 20bpm; Pulse Ox 89% RA; Pt placed on O2 \T\ 4L per sv NC.; sv 17:06 17:02 BP 158 / 86; Pulse 105bpm; Resp 32bpm; Pulse Ox 89% RA; Pt placed on O2 \T\ 4L per sv NC.; sv 18:53 18:24 Reassessment: sv sv
--- NOTE | 2020-08-21 18:47 | EDPHYS ---
Physician Documentation [facility] Name: Delores Mccarthy Age: 75 yrs Sex: Female : 1945 Arrival Date: 08/21/2020 Time: 17:02 Bed 4 Private MD: ED Physician Ousmane Ballard HPI: 08/21 17:20 This 75 yrs old Female presents to ER via EMS with complaints of Shortness Of cp Breath. 17:20 The patient has shortness of breath at rest. cp 17:20 Onset: The symptoms/episode began/occurred gradually, and became worse today. cp 17:20 Duration: The symptoms are continuous, and are steadily getting worse. Associated signs cp and symptoms: Pertinent positives: productive cough, fever, Pertinent negatives: vomiting. Severity of symptoms: in the emergency department the symptoms are unchanged despite home interventions. 17:20 Patient reports testing positive for COVID-19 this past Sunday. Patient was seen in [facility] ED 2 days ago and prescribed oral steroids. Reports cough and shortness of breath worsening. Historical: - Allergies: 17:03 Sulfa (Sulfonamide Antibiotics); sv 17:03 ambien; sv - PMHx: 17:03 Diabetes - IDDM; Renal Disease; sv - Immunization history:: Adult Immunizations unknown. - Social history:: Smoking status: Patient denies any tobacco usage or history of. ROS: 17:23 Eyes: Negative for injury, pain, redness, and discharge. cp 17:23 Constitutional: Negative for fever, poor PO intake. 17:23 Neck: Negative for pain with movement, pain at rest, stiffness. 17:23 Cardiovascular: Negative for chest pain, edema. 17:23 Respiratory: Positive for cough, "sounds productive", shortness of breath. 17:23 Abdomen/GI: Negative for abdominal pain, vomiting, diarrhea, constipation. 17:23 Neuro: Negative for altered mental status, headache. 17:23 All other systems are negative. Exam: 17:25 ECG was reviewed by the Attending Physician. cp 17:30 Constitutional: The patient appears alert, awake, non-diaphoretic, well developed, well cp nourished, in obvious distress, mildly distressed, obviously ill. 17:30 Head/Face: Normocephalic, atraumatic. cp 17:30 Eyes: Periorbital structures: appear normal, Conjunctiva: normal, no exudate, no injection, Sclera: no appreciated abnormality, Lids and lashes: appear normal, bilaterally. 17:30 ENT: External ear(s): are unremarkable, Nose: is normal, Mouth: Lips: moist, Oral mucosa: moist, Posterior pharynx: Airway: no evidence of obstruction, patent, swelling, is not appreciated, erythema, is not appreciated, exudate, is not appreciated. 17:30 Neck: ROM/movement: is normal, is supple, no meningismus, no nuchal rigidity. 17:30 Chest/axilla: Inspection: normal, Palpation: is normal, no crepitus, no tenderness. 17:30 Cardiovascular: Rate: tachycardic, Rhythm: regular, Edema: is not appreciated, JVD: is not appreciated. 17:30 Respiratory: mild respiratory distress is noted, Respirations: labored breathing, that is mild, shallow respirations, that is mild, tachypnea, that is mild, Breath sounds: bronchial sounds, that are moderate, are heard diffusely, stridor, is not appreciated, + upper airway congestion. 17:30 Abdomen/GI: Inspection: abdomen appears normal, Palpation: abdomen is soft and non-tender, in all quadrants. 17:30 Back: CVA tenderness, is absent. 17:30 Skin: no rash present. 17:30 Neuro: Orientation: to person, place \\T\\ time. Mentation: is normal, Cerebellar function: is grossly normal, Motor: moves all fours, strength is normal, Sensation: no obvious gross deficits. Vital Signs: 17:02 BP 158 / 86; Pulse 105; Resp 32; Temp 100.1(O); Pulse Ox 89% on R/A; sv 18:12 BP 146 / 66; Pulse 113; Resp 30; Pulse Ox 92% on 4 lpm NC; sv 18:30 BP 134 / 60; Pulse 103; Resp 38; Pulse Ox 94% on 35% Venturi mask; sv 20:00 BP 118 / 71; Pulse 78; Resp 24; Pulse Ox 94% on 35% Venturi mask; wh 21:30 BP 131 / 73; Pulse 79; Resp 22; Pulse Ox 95% on 35% Venturi mask; wh 17:02 Pt placed on O2 \\T\\ 4L per NC. sv MDM: 17:09 Patient medically screened. cp 18:47 Data reviewed: vital signs, nurses notes, lab test result(s), EKG, radiologic studies, cp plain films, I have discussed the patient's presentation/case with the attending Emergency Department Physician; and as a result, I will admit patient, administer antibiotics Rocephin, Zithromax. 18:47 Counseling: I had a detailed discussion with the patient and/or guardian regarding: the cp historical points, exam findings, and any diagnostic results supporting the discharge/admit diagnosis, lab results, radiology results, the need for further work-up and treatment in the hospital. Response to treatment: the patient's symptoms have markedly improved after treatment. 18:50 Physician consultation: Josiah Escobedo MD was called at 18:45, was contacted at 18:45, regarding admission, to the telemetry unit. patient's condition. 08/21 17:06 Order name: Basic Metabolic Panel; Complete Time: 18:19 cp 12/ 18:19 Interpretation: Normal except: CL 109; GLUC 130; BUN 44; CRE 1.70; GFR 29. / 17:06 Order name: CBC with Diff / 18:20 Interpretation: Normal except: WBC 13.8; RBC 5.51; HGB 16.3; HCT 49.0; PLT 176; YAJAIRA% cp 88.5; LYM% 7.1; NEUT A 12.2. 1205 17:06 Order name: LFT's; Complete Time: 18:19 cp / 17:06 Order name: Magnesium; Complete Time: 18:19 cp 08/21 17:06 Order name: NT PRO-BNP; Complete Time: 18:19 cp 08/21 17:06 Order name: PT-INR; Complete Time: 18:19 cp / 17:06 Order name: Troponin (emerg Dept Use Only); Complete Time: 18:19 cp 08/21 17:06 Order name: CRP; Complete Time: 18:19 cp / 17:06 Order name: D-Dimer; Complete Time: 18:19 cp 12/ 18:21 Interpretation: Abnormal: D-DIMER 696. cp 12/ 17:09 Order name: Lactate cp / 17:09 Order name: Procalcitonin cp / 17:09 Order name: Ferritin cp / 17:10 Order name: Lactate; Complete Time: 18:19 EDMS / 17:12 Order name: Blood Culture Adult (2) cp / 17:06 Order name: XRAY Chest (1 view); Complete Time: 18:19 cp / 18:58 Order name: Basic Metabolic Panel EDMS 08/21 18:58 Order name: Basic Metabolic Panel EDMS 08/21 18:58 Order name: C-Reactive Protein EDMS 08/21 18:58 Order name: C-Reactive Protein EDMS 08/21 18:58 Order name: C-Reactive Protein EDMS 08/21 18:58 Order name: C-Reactive Protein EDMS 08/21 18:58 Order name: C-Reactive Protein EDMS / 18:58 Order name: CBC with Automated Diff EDMS 08/21 18:58 Order name: CBC with Automated Diff EDMS 08/21 18:58 Order name: Chest Single View EDMS 08/21 18:58 Order name: Chest Single View EDMS 08/21 19:28 Order name: CBC Smear Scan EDMS 08/21 21:36 Order name: Lactate Sepsis 2 HR Follow-up EDMS 08/21 17:06 Order name: EKG; Complete Time: 17:07 cp / 17:06 Order name: Cardiac monitoring; Complete Time: 17:07 cp / 17:06 Order name: EKG - Nurse/Tech; Complete Time: 17:40 cp 08/21 17:06 Order name: IV Saline Lock; Complete Time: 17:40 cp 08/21 17:06 Order name: Labs collected and sent; Complete Time: 18:31 cp 08/21 17:06 Order name: O2 Per Protocol; Complete Time: 17:07 cp / 17:06 Order name: O2 Sat Monitoring; Complete Time: 17:07 cp / 18:57 Order name: Heart Healthy EDMS EC:25 Rate is 112 beats/min. Rhythm is regular. MN interval is normal. QRS interval is cp normal. QT interval is normal. Interpreted by me. Reviewed by me. Administered Medications: 17:50 Drug: Tessalon Perle 200 mg Route: PO; ec1 20:07 Follow up: Response: No adverse reaction 17:50 Drug: Tylenol 1000 mg Route: PO; ec1 20:07 Follow up: Response: No adverse reaction; Temperature is decreased 17:51 Drug: Albuterol HFA Inhaler 2 puffs Route: Inhalation; ec1 18:45 Drug: NS 0.9% 500 ml Route: IV; Rate: 500 ml/hr; Site: left hand; ec1 20:06 Follow up: Response: No adverse reaction; IV Status: Completed infusion 18:46 Drug: Rocephin 1 grams Route: IV; Rate: calculated rate; Site: left hand; ec1 20:07 Follow up: Response: No adverse reaction; IV Status: Completed infusion 18:46 Drug: Zithromax 500 mg Route: IVPB; Infused Over: 1 hrs; Site: left hand; ec1 20:07 Follow up: Response: No adverse reaction; IV Status: Completed infusion Disposition: 08/22 07:42 Co-signature as Attending Physician, Ousmane Ballard MD. rn Disposition: 08/21/20 18:47 Hospitalization ordered by Josiha Escobedo for Inpatient Admission. Preliminary diagnosis are Pneumonia due to other specified infectious organisms, Coronavirus infection, unspecified. - Bed requested for Intensive Care Unit. - Status is Inpatient Admission. - Condition is Stable. - Problem is an ongoing problem. - Symptoms have improved. Signatures: Dispatcher [employer] EDMS Kaycee Valle RN RN sv Nieto, Roman, MD MD rn Page, Corey, PA PA cp Habalo, Winsy Miguel Brunson, RN RN jaRika Salcido RN RN ec1 Corrections: (The following items were deleted from the chart) 08/21 19:54 17:33 Constitutional: Negative for fever, poor PO intake, cp cp 19:54 17:33 Cardiovascular: Negative for chest pain, edema, cp cp 19:54 17:33 Respiratory: Positive for cough, "sounds productive", shortness of breath, cp cp 19:54 17:33 Abdomen/GI: Negative for abdominal pain, vomiting, diarrhea, constipation, cp cp 19:54 17:33 Eyes: Negative for injury, pain, redness, and discharge, cp cp 19:54 17:33 Neck: Negative for pain with movement, pain at rest, stiffness, cp cp 19:54 17:33 Neuro: Negative for altered mental status, headache, cp cp 19:54 17:33 All other systems are negative, cp cp 20:02 18:47 Hospitalization Ordered by Josiah Escobedo MD for Inpatient Admission. ja1 Preliminary diagnosis is Pneumonia due to other specified infectious organisms; Coronavirus infection, unspecified. Bed requested for Telemetry/MedSurg (Inpatient). Status is Inpatient Admission. Condition is Stable. Problem is an ongoing problem. Symptoms have improved. cp 21:43 20:02 08/21/2020 18:47 Hospitalization Ordered by Josiah Escobedo MD for Inpatient wh Admission. Preliminary diagnosis is Pneumonia due to other specified infectious organisms; Coronavirus infection, unspecified. Bed requested for Intensive Care Unit. Status is Inpatient Admission. Condition is Stable. Problem is an ongoing problem. Symptoms have improved. ja1
[2020-08-21] MEDS ORDERED: ONDANSETRON 4 MG/2 ML VIAL IV PRN (18:48)
[2020-08-21] MEDS ORDERED: ACETAMINOPHEN 500 MG TAB PO PRN (18:48)
[2020-08-21] MEDS ORDERED: NA CHLORIDE 0.9% 250 ML ONE (18:49)
[2020-08-21] MEDS ORDERED: AZITHROMYCIN 500 MG INJ IVPB ONE (18:49)
[2020-08-21] MEDS ORDERED: CEFTRIAXONE/SWI 1gm 1 GM/10 ML SYR ONE (18:49)
[2020-08-21] MEDS ORDERED: NA CHLORIDE 0.9% 500 ML ONE (18:49)
--- NOTE | 2020-08-21 19:07 | P.HP ---
Certification for Inpatient With expected LOS: >2 Midnights Practitioner: I am a practitioner with admitting privileges, knowledge of patient current condition, hospital course, and medical plan of care. Services: Services provided to patient in accordance with Admission requirements found in Title 42 Section 412.3 of the Code of Federal Regulations Patient History Date of Service: 08/21/20 Primary Care Provider: Alley Reason for admission: Covid penumonia History of Present Illness: PT AW SOB, Dx with COVID on Sunday Pregessive sob and fever Allergies Sulfa (Sulfonamide Antibiotics) Allergy (Verified 12/31/17 10:03) Itching/Hives/Rash Home Medications: Insulin 70/30 NPH/Reg Human [Novolin 70/30*] 50 unit SQ BID 07/06/17 Amlodipine [Norvasc] 5 mg PO DAILY AFTER SUPPER 12/31/17 Ergocalciferol (Vitamin D2) [Vitamin D2] 50,000 unit PO EVERY 7TH DAY 12/31/17 Estradiol [Estrace] 42.5 gm VG DAILY 12/31/17 terbinafine HCL [Lamisil] 250 mg PO DAILY 12/31/17 Nitrofurantoin Monohyd/M-Cryst [Macrobid 100 mg Capsule] 100 mg PO DAILY 5 Days #5 capsule 01/04/18 - Past Medical/Surgical History Diabetic: Yes -: IDDM -: Hypertension -: vaginal vault prolapse -: cystocele -: rectocele -: hemorrhoid 2016 -: appy years ago -: lt knee replacement sev years ago -: tubal 45 yrs ago -: tummy tuck 20 yrs ago -: rt trigger finger release 2000 -: rt rtc repair 2016 - Family History Father -: Heart disease Notes: mother and sister with heart disease, sis had stroke and diabetes - Social History Alcohol use: No CD- Drugs: No Caffeine use: Yes Physical Examination - Vital Signs Temperature: 100.1 F Blood Pressure: 158/86 Pulse: 105 Respirations: 32 Pulse Ox (%): 89 - Physical Exam General: Alert, Moderate distress - Studies Laboratory Data (last 24 hrs) 08/21/20 17:29: PT 11.7, INR 0.99 08/21/20 17:29: WBC 13.8 H D, Hgb 16.3 H, Hct 49.0 H, Plt Count 176 D 08/21/20 17:29: Sodium 139, Potassium 4.6, BUN 44 H, Creatinine 1.70 H, Glucose 130 H, Magnesium 2.4, Total Bilirubin 0.5, AST 57 H, ALT 58, Alkaline Phosphatase 70 Assessment and Plan - Problems (Diagnosis) (1) Pneumonia due to COVID-19 virus Current Visit: Yes Status: Acute Plan: PT AW pneumonia due to COVID 19. Admit. Steroids , MVI anticoagulate Plan to discharge in: Greater than 2 days - Advance Directives Does patient have a Living Will: No Does patient have a Durable POA for Healthcare: No
[2020-08-21 19:27] LABS: Blood Morphology Comment NOT SEEN (NOT SEEN); Platelet Estimate ADEQ; White Blood Cell Scan OK (OK)
[2020-08-21] MEDS ORDERED: CEFTRIAXONE 1 GM/NS 50 ML 1 GM/50 ML BAG IV SCH (21:00)
[2020-08-21] MEDS: INSULIN -REGULAR HUMAN 50 UNIT/0.5 ML ML SQ SCH (21:00)
[2020-08-21] MEDS: METHYLPREDNISOLONE 40 MG INJ IV SCH (22:21)
[2020-08-21] MEDS: ATORVASTATIN 20 MG TAB PO SCH (22:22)
[2020-08-21] MEDS: SITAGLIPTIN PHOS 100 MG TAB PO SCH (22:22)
[2020-08-21] MEDS: APIXABAN 5 MG TABLET PO SCH (22:23)
[2020-08-21] MEDS: FAMOTIDINE 20 MG/2 ML VIAL IV SCH (22:23)
[2020-08-21] MEDS: SPIRONOLACTONE 25 MG TABLET PO SCH (22:23)
[2020-08-21] MEDS: THIAMINE HCL 100 MG TABLET PO SCH (22:23)
[2020-08-21] MEDS: MELATONIN 3 MG TABLET PO SCH (22:23)
[2020-08-21 22:55] VITALS: BMI 29.2
[2020-08-22] MEDS ORDERED: GLUCAGON 1 MG/VIAL IM PRN (01:27)
[2020-08-22] MEDS ORDERED: D50W 25 GM/50 ML SYRINGE IV PRN (01:27)
[2020-08-22 06:24] LABS: Absolute Lymphocytes (CBC) 0.8 K/uL (0.7-4.9); Basophils % 0.2 % (0-1.3); Hematocrit 43.3 % (36.0-45.0); Lymphocytes % 7.9 % (15.3-44.8); RBC Red Blood Cell Count 4.84 M/uL (3.86-4.86)
[2020-08-22 06:30] LABS: C-Reactive Protein 11.9 mg/L (<3.00); Potassium 4.6 mmol/L (3.5-5.1)
[2020-08-22] MEDS ORDERED: ALBUTEROL 2.5 MG/3 ML NEB SOL NEB SCH (09:00)
[2020-08-22] MEDS: IPRATROPIUM BROM 0.5MG/2.5ML NEB SCH ×4 (09:00→20:50)
[2020-08-22] MEDS: METHYLPREDNISOLONE 40 MG INJ IV SCH ×2 (09:09→21:00)
[2020-08-22] MEDS: LOSARTAN POTASSIUM 50 MG TABLET PO SCH (09:10)
[2020-08-22] MEDS: SPIRONOLACTONE 25 MG TABLET PO SCH (09:11)
[2020-08-22] MEDS: SITAGLIPTIN PHOS 100 MG TAB PO SCH (09:11)
[2020-08-22] MEDS: THIAMINE HCL 100 MG TABLET PO SCH (09:11)
[2020-08-22] MEDS: VITAMIN D 1000 UNIT TAB PO SCH (09:12)
[2020-08-22] MEDS: APIXABAN 5 MG TABLET PO SCH ×2 (09:12→21:00)
[2020-08-22] MEDS: INSULIN -REGULAR HUMAN 50 UNIT/0.5 ML ML SQ SCH ×4 (09:12→21:00)
[2020-08-22] MEDS: INSULIN 70/30 100 UNITS/ML SQ SCH ×2 (09:13→17:19)
[2020-08-22] MEDS: CEFTRIAXONE/SWI 1gm 1 GM/10 ML SYR IV SCH ×2 (09:14→21:00)
[2020-08-22] MEDS: MONTELUKAST 10 MG TAB PO SCH (09:15)
[2020-08-22] MEDS: BENZONATATE 100 MG CAP PO SCH ×4 (09:33→21:00)
[2020-08-22] MEDS: HYDROCODONE/CHLORPHEN 5 ML/OSYR PO PRN ×2 (11:03→23:46)
--- NOTE | 2020-08-22 11:46 | RAD REPORT ---
EXAM DESCRIPTION: RAD - Chest Single View - 08/22/2020 6:31 am CLINICAL HISTORY: pneumonia Chest pain. COMPARISON: Chest Single View dated 08/21/2020; Chest Single View dated 08/19/2020; Chest Pa And Lat ( 2 Views) dated 08/02/2016; Chest Pa And Lat (2 Views) dated 03/09/2016 FINDINGS: Portable technique limits examination quality. Mild bilateral pulmonary opacities are again seen, greater on the left, mildly improved since the com parative study. The heart is normal in size. No displaced fractures. IMPRESSION: Mild improvement in lung aeration seen since comparative examination.
--- NOTE | 2020-08-22 12:29 | P.PN ---
Subjective Date of Service: 08/22/20 Primary Care Provider: Alley Chief Complaint: Covid penumonia No changes from yesterday. Patient tolerating oxygen by nasal cannula Physical Examination - Vital Signs Temperature: 97.6 F Blood Pressure: 155/72 Pulse: 66 Respirations: 24 Pulse Ox (%): 90 - Physical Exam General: Alert, In no apparent distress Respiratory: Normal air movement Cardiovascular: No edema, Regular rate/rhythm, Normal S1 S2 Gastrointestinal: Non-distended Musculoskeletal: No swelling Integumentary: No rashes Neurological: Other (Nonfocal) - Studies Laboratory Data (last 24 hrs) 08/21/20 17:29: PT 11.7, INR 0.99 08/21/20 17:29: WBC 13.8 H D, Hgb 16.3 H, Hct 49.0 H, Plt Count 176 D 08/21/20 17:29: Sodium 139, Potassium 4.6, BUN 44 H, Creatinine 1.70 H, Glucose 130 H, Magnesium 2.4, Total Bilirubin 0.5, AST 57 H, ALT 58, Alkaline Phosphatase 70 Assessment And Plan - Current Problems (Diagnosis) (1) Acute respiratory failure with hypoxia Current Visit: Yes Status: Acute (2) Pneumonia due to COVID-19 virus Current Visit: Yes Status: Acute (3) Chronic kidney disease, stage 3 Current Visit: Yes Status: Acute - Plan Continue IV steroid. Titrate oxygen Start vitamin supplementation. Patient started on spironolactone. She is also on Eliquis for thromboembolism prophylaxis. Monitor renal function, CBC and inflammatory markers.
--- NOTE | 2020-08-22 19:50 | P.PN ---
Subjective Date of Service: 08/22/20 Primary Care Provider: Alley Chief Complaint: Covid penumonia Subjective: Improving (Patient is improving still complaining of significant cough is also hypoxic) Review of Systems General: Weakness Respiratory: Cough, Shortness of Breath Physical Examination - Vital Signs Temperature: 96.8 F Blood Pressure: 128/85 Pulse: 67 Respirations: 25 Pulse Ox (%): 90 Assessment & Plan - Problems (Diagnosis) (1) Pneumonia due to COVID-19 virus Current Visit: Yes Status: Acute Plan: Patient admitted with pneumonia due to coronal virus she complaining of coughing continue with present treatment CRP is low will set up for home O2 possible discharge in 1 or 2 days on prednisone 20 mg twice a day in addition to an Advair inhaler patient complains of significant cough with promethazine and codeine continue with anticoagulation
[2020-08-22] MEDS: BUDESONIDE 0.5 MG/2 ML NEB NEB SCH (20:50)
[2020-08-22] MEDS: TRAVATAN Z OPTH SCH (21:00)
[2020-08-22] MEDS: LATANOPROST 0.005% PO SCH (21:00)
[2020-08-22] MEDS: EYE PO SCH (21:00)
[2020-08-22] MEDS: MELATONIN 3 MG TABLET PO SCH (21:00)
[2020-08-22] MEDS: ATORVASTATIN 20 MG TAB PO SCH (21:00)
[2020-08-22] MEDS: FAMOTIDINE 20 MG/2 ML VIAL IV SCH (21:00)
[2020-08-23] MEDS: IPRATROPIUM BROM 0.5MG/2.5ML NEB SCH ×4 (01:37→20:00)
[2020-08-23] MEDS: PROMETHAZINE-DM 5 ML OSYR PO PRN ×3 (05:05→21:45)
[2020-08-23] MEDS: INSULIN 70/30 100 UNITS/ML SQ SCH ×2 (06:33→16:00)
[2020-08-23] MEDS: INSULIN -REGULAR HUMAN 50 UNIT/0.5 ML ML SQ SCH ×4 (06:34→21:00)
--- NOTE | 2020-08-23 06:59 | P.PN ---
Subjective Date of Service: 08/23/20 Primary Care Provider: Alley Chief Complaint: Covid penumonia Subjective: Improving (Patient is improving now on nasal cannula oxygen the less some coughing spells) Review of Systems General: Weakness Respiratory: Cough, Shortness of Breath Physical Examination - Vital Signs Temperature: 97.2 F Blood Pressure: 122/65 Pulse: 60 Respirations: 26 Pulse Ox (%): 88 Assessment & Plan - Problems (Diagnosis) (1) Pneumonia due to COVID-19 virus Current Visit: Yes Status: Acute Plan: Patient is improving CRP is less than 20 currently on nasal cannula oxygen decrease it to 40 does possible discharge on 4 L of nasal cannula oxygen prednisone 20 b.i.d. for a week and then 10 b.i.d. for the next week anti coagulated the patient poly need some a cough syrup at home follow with me in 1 or 2 weeks Discharge Plan: Home Plan to discharge in: 24 Hours
[2020-08-23] MEDS: BUDESONIDE 0.5 MG/2 ML NEB NEB SCH ×2 (08:10→20:00)
[2020-08-23] MEDS: SITAGLIPTIN PHOS 100 MG TAB PO SCH (09:31)
[2020-08-23] MEDS: LOSARTAN POTASSIUM 50 MG TABLET PO SCH (09:31)
[2020-08-23] MEDS: VITAMIN D 1000 UNIT TAB PO SCH (09:31)
[2020-08-23] MEDS: THIAMINE HCL 100 MG TABLET PO SCH (09:31)
[2020-08-23] MEDS: SPIRONOLACTONE 25 MG TABLET PO SCH (09:32)
[2020-08-23] MEDS: BENZONATATE 100 MG CAP PO SCH ×3 (09:32→21:39)
[2020-08-23] MEDS: METHYLPREDNISOLONE 40 MG INJ IV SCH ×2 (09:33→21:38)
[2020-08-23] MEDS: MONTELUKAST 10 MG TAB PO SCH (09:33)
[2020-08-23] MEDS: CEFTRIAXONE/SWI 1gm 1 GM/10 ML SYR IV SCH ×2 (09:34→21:38)
[2020-08-23] MEDS: APIXABAN 5 MG TABLET PO SCH ×2 (09:34→21:39)
--- NOTE | 2020-08-23 11:50 | P.PN ---
Subjective Date of Service: 08/23/20 Primary Care Provider: Alley Chief Complaint: Covid penumonia Patient requiring more oxygen this morning. The CRP level is low. She has been afebrile. Physical Examination - Vital Signs Temperature: 97.1 F Blood Pressure: 144/77 Pulse: 63 Respirations: 18 Pulse Ox (%): 99 - Physical Exam General: Alert, In no apparent distress Neck: JVD not distended Respiratory: Normal air movement Cardiovascular: No edema, Regular rate/rhythm, Normal S1 S2 Gastrointestinal: Non-distended Musculoskeletal: No swelling Integumentary: No rashes, No erythema Neurological: Other (Nonfocal) Assessment And Plan - Current Problems (Diagnosis) (1) Acute respiratory failure with hypoxia Current Visit: Yes Status: Acute (2) Pneumonia due to COVID-19 virus Current Visit: Yes Status: Acute (3) Chronic kidney disease, stage 3 Current Visit: Yes Status: Acute - Plan Continue IV steroid. Patient is needing more oxygen this morning. Will monitor her oxygen requirement for 1 more day. She will be discharged to home with oral prednisone therapy per pulmonary recommendation once she stabilizes on 3-4 L of oxygen by nasal cannula. Continue vitamin supplementation, spironolactone and Eliquis.
[2020-08-23] MEDS: HYDROCODONE/CHLORPHEN 5 ML/OSYR PO PRN (13:23)
[2020-08-23] MEDS: EYE PO SCH (21:00)
[2020-08-23] MEDS: TRAVATAN Z OPTH SCH (21:00)
[2020-08-23] MEDS: LATANOPROST 0.005% PO SCH (21:00)
[2020-08-23] MEDS: FAMOTIDINE 20 MG/2 ML VIAL IV SCH (21:38)
[2020-08-23] MEDS: ATORVASTATIN 20 MG TAB PO SCH (21:38)
[2020-08-23] MEDS: MELATONIN 3 MG TABLET PO SCH (21:39)
[2020-08-24 06:15] LABS: C-Reactive Protein 12.4 mg/L (<3.00); Potassium 4.6 mmol/L (3.5-5.1)
[2020-08-24] MEDS: INSULIN 70/30 100 UNITS/ML SQ SCH ×2 (06:38→16:00)
[2020-08-24] MEDS: INSULIN -REGULAR HUMAN 50 UNIT/0.5 ML ML SQ SCH ×4 (07:30→22:40)
[2020-08-24] MEDS: IPRATROPIUM BROM 0.5MG/2.5ML NEB SCH ×2 (08:22→20:20)
[2020-08-24] MEDS: BUDESONIDE 0.5 MG/2 ML NEB NEB SCH ×2 (08:22→20:20)
[2020-08-24] MEDS: SITAGLIPTIN PHOS 100 MG TAB PO SCH (08:49)
[2020-08-24] MEDS: BENZONATATE 100 MG CAP PO SCH ×3 (08:49→22:40)
[2020-08-24] MEDS: VITAMIN D 1000 UNIT TAB PO SCH (08:49)
[2020-08-24] MEDS: LOSARTAN POTASSIUM 50 MG TABLET PO SCH (08:50)
[2020-08-24] MEDS: APIXABAN 5 MG TABLET PO SCH ×2 (08:50→22:39)
[2020-08-24] MEDS: THIAMINE HCL 100 MG TABLET PO SCH (08:50)
[2020-08-24] MEDS: MONTELUKAST 10 MG TAB PO SCH (08:50)
[2020-08-24] MEDS: PROMETHAZINE-DM 5 ML OSYR PO PRN (08:51)
[2020-08-24] MEDS: SPIRONOLACTONE 25 MG TABLET PO SCH (08:56)
[2020-08-24] MEDS: CEFTRIAXONE/SWI 1gm 1 GM/10 ML SYR IV SCH (09:00)
--- NOTE | 2020-08-24 09:38 | P.PN ---
Subjective Date of Service: 08/24/20 Primary Care Provider: Alley Chief Complaint: Covid penumonia Subjective: No new changes (reports feeling about the same, requiring HFNC, states she coughs when she tries to talk denies abdominal pain, chest pain, dysuria.) Review of Systems 10-point ROS is otherwise unremarkable Physical Examination - Vital Signs Temperature: 97.4 F Blood Pressure: 151/87 Pulse: 57 Respirations: 24 Pulse Ox (%): 95 - Physical Exam General: Alert, In no apparent distress HEENT: Sclerae nonicteric Respiratory: Other (non-labored on HFNC, mild nonproductive cough when talking) Cardiovascular: No edema, Regular rate/rhythm Gastrointestinal: Soft and benign, No tenderness Integumentary: No rashes Assessment & Plan Physician Review Additional Text: Acute respiratory failure with hypoxia secondary to COVID-19 pneumonia CKD 3 IDDM2 HTN continue solumedrol 80 q 12hr on HFNC, will continue to wean as tolerated pulmonology following - rec dc home with PO prednisone once stabilizes on 3-4L NC was started on rocephin on admission, will dc - discussed with pulm; blood Cx negative, clinical status likely due to COVID-19 pneumonia, no bacterial infection continue spironolactone & eliquis home 70/30 held last night and this morning due to low-normal glc; she was started on Januvia by pulm dispo: anticipate dc home in 24-48hrs, pending titration of O2, will need home O2 Time Spent Managing Pts Care (In Minutes): 40
[2020-08-24] MEDS: METHYLPREDNISOLONE 40 MG INJ IV SCH ×2 (09:51→22:40)
--- NOTE | 2020-08-24 12:16 | P.PN ---
Subjective Date of Service: 08/24/20 Primary Care Provider: Alley Chief Complaint: Covid penumonia Subjective: Improving (Wing still feeling weak and coughing) Review of Systems General: Weakness Respiratory: Cough, Shortness of Breath Physical Examination - Vital Signs Temperature: 97.4 F Blood Pressure: 151/87 Pulse: 57 Respirations: 24 Pulse Ox (%): 95 Assessment & Plan - Problems (Diagnosis) (1) Pneumonia due to COVID-19 virus Current Visit: Yes Status: Acute Plan: Admitted with respiratory failure patient is gradually improving week CRP is below 15 saturation satisfactory convert to nasal cannula oxygen sats mm above 90% on 4 L plan to discharge on 20 mg twice a day of prednisone for a week and then 10 mg twice a day follow with a telephone visit with me in 2 weeks mild chronic renal insufficiency
[2020-08-24] MEDS: TRAVATAN Z OPTH SCH (19:11)
[2020-08-24] MEDS: LATANOPROST 0.005% PO SCH (21:00)
[2020-08-24] MEDS: EYE PO SCH (21:00)
[2020-08-24] MEDS: ATORVASTATIN 20 MG TAB PO SCH (22:39)
[2020-08-24] MEDS: MELATONIN 3 MG TABLET PO SCH (22:40)
[2020-08-24] MEDS: FAMOTIDINE 20 MG/2 ML VIAL IV SCH (22:41)
[2020-08-24] MEDS: HYDROCODONE/CHLORPHEN 5 ML/OSYR PO PRN (22:47)
[2020-08-25 05:43] LABS: C-Reactive Protein 7.03 mg/L (<3.00); Ferritin 1336.5 ng/mL (8-388); Magnesium 3.1 mg/dL (1.8-2.4); Potassium 4.8 mmol/L (3.5-5.1)
[2020-08-25] MEDS: INSULIN 70/30 100 UNITS/ML SQ SCH ×2 (06:40→17:01)
[2020-08-25] MEDS: METHYLPREDNISOLONE 40 MG INJ IV SCH ×3 (09:21→20:43)
[2020-08-25] MEDS: SITAGLIPTIN PHOS 100 MG TAB PO SCH (09:21)
[2020-08-25] MEDS: APIXABAN 5 MG TABLET PO SCH ×2 (09:22→20:43)
[2020-08-25] MEDS: BENZONATATE 100 MG CAP PO SCH ×3 (09:22→20:43)
[2020-08-25] MEDS: MONTELUKAST 10 MG TAB PO SCH (09:22)
[2020-08-25] MEDS: SPIRONOLACTONE 25 MG TABLET PO SCH (09:22)
[2020-08-25] MEDS: LOSARTAN POTASSIUM 50 MG TABLET PO SCH (09:22)
[2020-08-25] MEDS: FLUCONAZOLE 100 MG TAB PO SCH (09:23)
[2020-08-25] MEDS: INSULIN -REGULAR HUMAN 50 UNIT/0.5 ML ML SQ SCH ×4 (09:23→20:44)
[2020-08-25] MEDS: BUDESONIDE 0.5 MG/2 ML NEB NEB SCH ×2 (09:25→20:35)
[2020-08-25] MEDS: VITAMIN D 1000 UNIT TAB PO SCH (09:32)
[2020-08-25] MEDS: THIAMINE HCL 100 MG TABLET PO SCH (09:33)
--- NOTE | 2020-08-25 12:04 | P.PN ---
Subjective Date of Service: 08/25/20 Primary Care Provider: Alley Chief Complaint: Covid penumonia Subjective: Improving (Patient is improving still feeling weak and short of breath requiring high concentration of oxygen worse in the morning) Review of Systems General: Weakness Respiratory: Shortness of Breath Physical Examination - Vital Signs Temperature: 97.8 F Blood Pressure: 148/66 Pulse: 67 Respirations: 24 Pulse Ox (%): 91 Assessment & Plan - Problems (Diagnosis) (1) Pneumonia due to COVID-19 virus Current Visit: Yes Status: Acute Plan: No change in present medication continue with steroids due to titrate O2 down to a sat of 90% still feeling weak patient has mild renal impairment
[2020-08-25] MEDS: PROMETHAZINE-DM 5 ML OSYR PO PRN ×2 (13:18→20:43)
--- NOTE | 2020-08-25 14:25 | P.PN ---
Subjective Date of Service: 08/25/20 Primary Care Provider: Alley Chief Complaint: Covid penumonia Subjective: No new changes (Continues to feel weak, feels breathing is about the same, still requiring high-flow nasal cannula, required BiPAP overnight) Review of Systems 10-point ROS is otherwise unremarkable Physical Examination - Vital Signs Temperature: 97.8 F Blood Pressure: 148/66 Pulse: 67 Respirations: 24 Pulse Ox (%): 91 - Physical Exam General: Alert, Other (Appears fatigued) HEENT: Sclerae nonicteric Respiratory: Other (slightly labored on HFNC) Cardiovascular: Regular rate/rhythm Gastrointestinal: Soft and benign, No tenderness Integumentary: No rashes Neurological: Normal speech, Normal affect Assessment & Plan Physician Review Additional Text: Acute respiratory failure with hypoxia secondary to COVID-19 pneumonia CKD 3 IDDM2 HTN continue solumedrol 80 q 8hr per pulmonology on HFNC, will continue to wean as tolerated pulmonology following - rec dc home with PO prednisone once stabilizes on 3-4L NC was started on rocephin on admission,dc'd 08/24 - discussed with pulm; blood Cx negative, clinical status likely due to COVID-19 pneumonia, no bacterial infection continue spironolactone & eliquis home 70/30 held last night and this morning due to low-normal glc; she was started on Januvia by pulm (increased to 100 daily) Renal function appears stable/at baseline dispo: Slowly weaning on the HFNC, if continues, may benefit from LTAC, will discuss with pulm Time Spent Managing Pts Care (In Minutes): 35
[2020-08-25] MEDS: IPRATROPIUM BROM 0.5MG/2.5ML NEB PRN (20:35)
[2020-08-25] MEDS: ATORVASTATIN 20 MG TAB PO SCH (20:43)
[2020-08-25] MEDS: FAMOTIDINE 20 MG TAB PO SCH (20:43)
[2020-08-25] MEDS: MELATONIN 3 MG TABLET PO SCH (20:43)
[2020-08-25] MEDS: EYE PO SCH (20:44)
[2020-08-25] MEDS: LATANOPROST 0.005% PO SCH (20:44)
[2020-08-25] MEDS: GLUCERNA SHAKE 237 ML CAN PO SCH (20:44)
[2020-08-25] MEDS: TRAVATAN Z OPTH SCH (20:45)
[2020-08-26 05:13] LABS: Absolute Lymphocytes (CBC) 0.7 K/uL (0.7-4.9); Basophils % 0.2 % (0-1.3); Hematocrit 48.9 % (36.0-45.0); Lymphocytes % 3.9 % (15.3-44.8); MPV 10.8 fL (7.6-11.3); RBC Red Blood Cell Count 5.49 M/uL (3.86-4.86)
[2020-08-26 05:38] LABS: BUN Blood Urea Nitrogen 82 mg/dL (7-18); Bicarbonate 25 mmol/L (21-32); Ferritin 1315.1 ng/mL (8-388); Glucose Level 124 mg/dL (74-106); Magnesium 3.3 mg/dL (1.8-2.4); Potassium 4.8 mmol/L (3.5-5.1); Sodium Level 143 mmol/L (136-145)
[2020-08-26 05:41] LABS: C-Reactive Protein < 2.90 mg/L (<3.00)
[2020-08-26] MEDS: INSULIN 70/30 100 UNITS/ML SQ SCH ×2 (05:52→17:08)
--- NOTE | 2020-08-26 07:14 | RAD REPORT ---
EXAM DESCRIPTION: Lv Single View08/26/2020 6:15 am CLINICAL HISTORY: Hypoxia COMPARISON: August 22 FINDINGS: Bilateral pulmonary opacities have partially resolved. Heart is normal size IMPRESSION: Improvement in bilateral pulmonary opacities which are now mild.
[2020-08-26] MEDS: INSULIN -REGULAR HUMAN 50 UNIT/0.5 ML ML SQ SCH ×4 (07:30→21:00)
[2020-08-26 07:48] LABS: Blood Morphology Comment NOT SEEN (NOT SEEN); Platelet Estimate ADEQ
[2020-08-26] MEDS: IPRATROPIUM BROM 0.5MG/2.5ML NEB PRN (08:30)
[2020-08-26] MEDS: BUDESONIDE 0.5 MG/2 ML NEB NEB SCH (08:30)
[2020-08-26] MEDS: BENZONATATE 100 MG CAP PO SCH ×4 (09:00→21:00)
[2020-08-26] MEDS: MONTELUKAST 10 MG TAB PO SCH ×2 (09:00→09:18)
[2020-08-26] MEDS: VITAMIN D 1000 UNIT TAB PO SCH ×2 (09:00→09:18)
[2020-08-26] MEDS: SPIRONOLACTONE 25 MG TABLET PO SCH ×2 (09:00→09:18)
[2020-08-26] MEDS: FLUCONAZOLE 100 MG TAB PO SCH ×2 (09:00→09:18)
[2020-08-26] MEDS: SITAGLIPTIN PHOS 100 MG TAB PO SCH ×2 (09:00→10:05)
[2020-08-26] MEDS: THIAMINE HCL 100 MG TABLET PO SCH ×2 (09:00→09:18)
[2020-08-26] MEDS: FAMOTIDINE 20 MG TAB PO SCH ×3 (09:00→21:00)
[2020-08-26] MEDS: GLUCERNA SHAKE 237 ML CAN PO SCH ×3 (09:00→21:00)
[2020-08-26] MEDS: LOSARTAN POTASSIUM 50 MG TABLET PO SCH (09:18)
[2020-08-26] MEDS: METHYLPREDNISOLONE 40 MG INJ IV SCH ×3 (09:18→21:01)
[2020-08-26] MEDS: APIXABAN 5 MG TABLET PO SCH ×2 (10:06→20:58)
--- NOTE | 2020-08-26 15:42 | P.PN ---
Subjective Date of Service: 08/26/20 Primary Care Provider: Alley Chief Complaint: Covid penumonia Subjective: Improving (Felling weak. O2 requirment decreasing) Review of Systems General: Weakness Respiratory: Shortness of Breath Physical Examination - Vital Signs Temperature: 97.5 F Blood Pressure: 125/75 Pulse: 59 Respirations: 22 Pulse Ox (%): 94 - Physical Exam General: Alert Neck: Supple Respiratory: Clear to auscultation bilaterally Assessment & Plan - Problems (Diagnosis) (1) Pneumonia due to COVID-19 virus Status: Acute Plan: Improving. TitrateO2 sat of 90%. Wean O2. Reduce steroids. Regualr diet. LAbs reviewed. Renal fucntion worse. D/C Losartan. CRP is low CXRY improvement BS controlled Plan to discharge in: Greater than 2 days
--- NOTE | 2020-08-26 16:58 | P.PN ---
Subjective Date of Service: 08/26/20 Primary Care Provider: Alley Chief Complaint: Covid penumonia Subjective: No new changes (Feels breathing is about the same, on BiPAP overnight) Review of Systems 10-point ROS is otherwise unremarkable Physical Examination - Vital Signs Temperature: 97.5 F Blood Pressure: 125/75 Pulse: 59 Respirations: 22 Pulse Ox (%): 94 - Physical Exam General: Alert, In no apparent distress HEENT: Sclerae nonicteric Respiratory: Other (on BIPAP) Cardiovascular: Regular rate/rhythm Gastrointestinal: Soft and benign, No tenderness Musculoskeletal: No tenderness Integumentary: No rashes Assessment & Plan Physician Review Additional Text: Acute respiratory failure with hypoxia secondary to COVID-19 pneumonia CKD 3 IDDM2 HTN No changes in medication regimen, continue Solu-Medrol 80 q. 8, Eliquis, spironolactone, Januvia 100 mg CRP nearly normal, however ferritin remains highly elevated on HFNC/BIPAP, having great difficulty weaning Briefly discussed possibility of LTAC with patient and she seems to be in agreement Consult social service for LTAC placement was started on rocephin on admission,dc'd 08/24 - discussed with pulm; blood Cx negative, clinical status likely due to COVID-19 pneumonia, no bacterial infection Renal function appears stable/at baseline Increase leukocytosis likely due to high-dose steroids now dispo: Very slowly weaning oxygen, LTAC referral requested Time Spent Managing Pts Care (In Minutes): 35
[2020-08-26] MEDS ORDERED: BUDESONIDE 0.5 MG/2 ML NEB ONE (20:23)
[2020-08-26] MEDS: levoFLOXacin 500 MG TAB PO SCH (20:58)
[2020-08-26] MEDS: EYE PO SCH (20:59)
[2020-08-26] MEDS: ATORVASTATIN 20 MG TAB PO SCH (20:59)
[2020-08-26] MEDS: LATANOPROST 0.005% PO SCH (20:59)
[2020-08-26] MEDS: MELATONIN 3 MG TABLET PO SCH (20:59)
[2020-08-26] MEDS: TRAVATAN Z OPTH SCH (21:00)
[2020-08-27 05:16] LABS: Absolute Lymphocytes (CBC) 0.7 K/uL (0.7-4.9); Basophils % 1.1 % (0-1.3); Hematocrit 53.3 % (36.0-45.0); Lymphocytes % 4.7 % (15.3-44.8); MPV 11.2 fL (7.6-11.3); RBC Red Blood Cell Count 5.96 M/uL (3.86-4.86)
[2020-08-27 05:28] LABS: BUN Blood Urea Nitrogen 90 mg/dL (7-18); Bicarbonate 20 mmol/L (21-32); Ferritin 1353.2 ng/mL (8-388); Glucose Level 182 mg/dL (74-106); Magnesium 3.5 mg/dL (1.8-2.4); Potassium 4.9 mmol/L (3.5-5.1); Sodium Level 146 mmol/L (136-145)
[2020-08-27 05:31] LABS: C-Reactive Protein < 2.90 mg/L (<3.00)
[2020-08-27] MEDS: levoFLOXacin 500 MG TAB PO SCH (09:00)
[2020-08-27] MEDS: FAMOTIDINE 20 MG TAB PO SCH ×2 (09:00→21:54)
[2020-08-27] MEDS: VITAMIN D 1000 UNIT TAB PO SCH (09:00)
[2020-08-27] MEDS: BENZONATATE 100 MG CAP PO SCH ×3 (09:00→21:56)
[2020-08-27] MEDS: GLUCERNA SHAKE 237 ML CAN PO SCH ×2 (09:00→21:57)
[2020-08-27] MEDS: MONTELUKAST 10 MG TAB PO SCH (09:00)
[2020-08-27] MEDS: THIAMINE HCL 100 MG TABLET PO SCH (09:00)
[2020-08-27] MEDS: SITAGLIPTIN PHOS 100 MG TAB PO SCH (09:00)
[2020-08-27] MEDS: SPIRONOLACTONE 25 MG TABLET PO SCH (09:00)
[2020-08-27] MEDS: FLUCONAZOLE 100 MG TAB PO SCH (09:00)
--- NOTE | 2020-08-27 10:05 | P.PN ---
Subjective Date of Service: 08/27/20 Primary Care Provider: Alley Chief Complaint: Covid penumonia Subjective: No new changes (feeling about the same, still requiring HFNC with shortness of breath and desaturations discussed yesterday and again today, patient agreeable to LTAC) Review of Systems 10-point ROS is otherwise unremarkable Physical Examination - Vital Signs Temperature: 98.5 F Blood Pressure: 136/76 Pulse: 68 Respirations: 16 Pulse Ox (%): 95 - Physical Exam General: Alert HEENT: Sclerae nonicteric Respiratory: Other (mildlly labored on HFNC, +dry cough) Cardiovascular: Regular rate/rhythm Gastrointestinal: Soft and benign, No tenderness Musculoskeletal: No tenderness Neurological: Normal speech, Normal affect - Studies Microbiology Data (last 24 hrs): 08/21/20 18:23 Blood - Blood Aerobic Blood Culture - Final No growth in 5 days. 08/21/20 18:23 Blood - Blood Anaerobic Blood Culture - Final No growth in 5 days. 08/21/20 17:29 Blood - Blood Aerobic Blood Culture - Final No growth in 5 days. 08/21/20 17:29 Blood - Blood Anaerobic Blood Culture - Final No growth in 5 days. Assessment & Plan Physician Review Additional Text: Acute respiratory failure with hypoxia secondary to COVID-19 pneumonia CKD 3 IDDM2 HTN Solumedrol 40 TID per pulm on HFNC, will continue to wean as tolerated received rocephin on admission and dc'd 08/24 - after discussion with pulm, blood Cx negative, unlikely to have bacterial infection in addition to COVID pneumonia continue spironolactone & eliquis continue home 70/30, and on Januvia per pulm Renal function with slight decrease; Cr: 1.6, baseline seems to be ~1.4, losartan dc'd ferritin remains elevated dispo: Slowly weaning on the HFNC, discussed LTAC with patient, she is agreeable, SW consulted Time Spent Managing Pts Care (In Minutes): 35
[2020-08-27] MEDS: INSULIN -REGULAR HUMAN 50 UNIT/0.5 ML ML SQ SCH ×4 (10:34→21:53)
[2020-08-27] MEDS: INSULIN 70/30 100 UNITS/ML SQ SCH ×2 (10:35→16:00)
[2020-08-27] MEDS: METHYLPREDNISOLONE 40 MG INJ IV SCH ×2 (10:36→21:54)
[2020-08-27] MEDS: APIXABAN 5 MG TABLET PO SCH ×2 (10:36→21:54)
[2020-08-27] MEDS: LORAZEPAM 1 MG TABLET PO PRN (10:54)
--- NOTE | 2020-08-27 11:25 | P.PN ---
Subjective Date of Service: 08/27/20 Primary Care Provider: Alley Chief Complaint: Covid penumonia Subjective: Improving (Patient is improving feeling better cough has reduced still on high concentrations of oxygen) Review of Systems General: Weakness Respiratory: Shortness of Breath Physical Examination - Vital Signs Temperature: 98.5 F Blood Pressure: 136/76 Pulse: 68 Respirations: 16 Pulse Ox (%): 95 - Studies Microbiology Data (last 24 hrs): 08/21/20 18:23 Blood - Blood Aerobic Blood Culture - Final No growth in 5 days. 08/21/20 18:23 Blood - Blood Anaerobic Blood Culture - Final No growth in 5 days. 08/21/20 17:29 Blood - Blood Aerobic Blood Culture - Final No growth in 5 days. 08/21/20 17:29 Blood - Blood Anaerobic Blood Culture - Final No growth in 5 days. Assessment & Plan - Problems (Diagnosis) (1) Pneumonia due to COVID-19 virus Current Visit: Yes Status: Acute Plan: Admitted with respiratory failure still requiring high concentration of oxygen saturation has improved coughing has improved BUN and creatinine were elevated the be side effect of the steroids I have decrease the Solu-Medrol to 40 b.i.d. titrate O2 to a sat of 88-90% and then transition her to nasal cannula oxygen is less than 50% FiO2 the alternate with high-flow
[2020-08-27] MEDS: TRAVATAN Z OPTH SCH (21:00)
[2020-08-27] MEDS: MELATONIN 3 MG TABLET PO SCH (21:54)
[2020-08-27] MEDS: ATORVASTATIN 20 MG TAB PO SCH (21:54)
[2020-08-27] MEDS: EYE PO SCH (21:57)
[2020-08-27] MEDS: LATANOPROST 0.005% PO SCH (21:57)
[2020-08-28 05:02] LABS: Absolute Lymphocytes (CBC) 0.7 K/uL (0.7-4.9); Basophils % 0.2 % (0-1.3); Hematocrit 52.6 % (36.0-45.0); Lymphocytes % 3.6 % (15.3-44.8); MPV 11.1 fL (7.6-11.3); RBC Red Blood Cell Count 5.84 M/uL (3.86-4.86)
[2020-08-28 05:52] LABS: BUN Blood Urea Nitrogen 107 mg/dL (7-18); Bicarbonate 23 mmol/L (21-32); C-Reactive Protein < 2.90 mg/L (<3.00); Ferritin 1306.7 ng/mL (8-388); Glucose Level 145 mg/dL (74-106); Potassium 4.9 mmol/L (3.5-5.1); Sodium Level 146 mmol/L (136-145)
[2020-08-28 05:54] LABS: Magnesium 3.7 mg/dL (1.8-2.4)
[2020-08-28] MEDS: INSULIN 70/30 100 UNITS/ML SQ SCH ×2 (07:00→16:00)
[2020-08-28] MEDS: INSULIN -REGULAR HUMAN 50 UNIT/0.5 ML ML SQ SCH ×4 (07:30→21:00)
[2020-08-28] MEDS: MONTELUKAST 10 MG TAB PO SCH ×2 (09:00→11:24)
[2020-08-28] MEDS: levoFLOXacin 500 MG TAB PO SCH ×3 (09:00→12:40)
[2020-08-28] MEDS: GLUCERNA SHAKE 237 ML CAN PO SCH ×3 (09:00→21:00)
[2020-08-28] MEDS: VITAMIN D 1000 UNIT TAB PO SCH ×2 (09:00→11:24)
[2020-08-28] MEDS: SPIRONOLACTONE 25 MG TABLET PO SCH (09:00)
[2020-08-28] MEDS: FLUCONAZOLE 100 MG TAB PO SCH ×2 (09:00→11:25)
[2020-08-28] MEDS: BENZONATATE 100 MG CAP PO SCH ×3 (09:00→21:15)
[2020-08-28] MEDS: SITAGLIPTIN PHOS 100 MG TAB PO SCH (09:00)
[2020-08-28] MEDS: FAMOTIDINE 20 MG TAB PO SCH ×4 (09:00→21:16)
[2020-08-28] MEDS: APIXABAN 5 MG TABLET PO SCH ×4 (09:00→21:15)
[2020-08-28] MEDS: ASPIRIN EC 81 MG TAB PO SCH ×3 (09:00→12:45)
[2020-08-28] MEDS: THIAMINE HCL 100 MG TABLET PO SCH ×2 (09:00→11:24)
--- NOTE | 2020-08-28 10:10 | P.PN ---
Subjective Date of Service: 08/28/20 Primary Care Provider: Alley Chief Complaint: Covid penumonia Subjective: No new changes (not eating/drinking much, feels about same, maybe slightly worse breathing this morning - had bad coughing fit when got up to use bedside commode. denies n/v, no abdominal pain) Review of Systems 10-point ROS is otherwise unremarkable Physical Examination - Vital Signs Temperature: 96.7 F Blood Pressure: 112/57 Pulse: 59 Respirations: 32 Pulse Ox (%): 89 - Physical Exam General: Alert, Mild distress HEENT: Sclerae nonicteric Respiratory: Other (slight labored on HFNC) Cardiovascular: No edema, Regular rate/rhythm Gastrointestinal: Soft and benign, No tenderness Musculoskeletal: No tenderness Integumentary: No rashes Assessment & Plan Physician Review Additional Text: Acute respiratory failure with hypoxia secondary to COVID-19 pneumonia Hypermagnesemia CKD 3 IDDM2 HTN decrease solumedrol - 40mg BID on HFNC, will continue to wean as tolerated continue eliquis continue home 70/30, and on Januvia per pulm - will dc januvia - pt has refused the past 2 days, Glc controlled without it and steroids are being weaned Renal function with slight decrease; Cr: 1.6, baseline seems to be ~1.4, losartan dc'd on 08/27 Mg increasing, has been seen in COVID patients, and possibly in setting of decrease po intake / dehydration and CKD, will give gentle IVF (1/2 NS @ 50) will dc spironolactone for now - BP low-normal, appears dry, pt has refused the past 2 days as well ferritin remains elevated dispo: Slowly weaning on the HFNC, would benefit from LTAC - pt agreeable Time Spent Managing Pts Care (In Minutes): 37
[2020-08-28] MEDS: METHYLPREDNISOLONE 40 MG INJ IV SCH ×2 (11:24→21:16)
[2020-08-28] MEDS: NACHLORIDE 0.45% 1,000 ML IV SCH (11:33)
[2020-08-28] MEDS ORDERED: D50W 25 GM/50 ML SYRINGE IV ONE (12:30)
[2020-08-28] MEDS ORDERED: D50W 25 GM/50 ML VIAL IV ONE (14:00)
[2020-08-28] MEDS: LATANOPROST 0.005% PO SCH (21:00)
[2020-08-28] MEDS: TRAVATAN Z OPTH SCH (21:00)
[2020-08-28] MEDS: EYE PO SCH (21:00)
[2020-08-28] MEDS: ATORVASTATIN 20 MG TAB PO SCH (21:16)
[2020-08-28] MEDS: MELATONIN 3 MG TABLET PO SCH (21:16)
[2020-08-28] MEDS: LORAZEPAM 1 MG TABLET PO PRN (23:08)
[2020-08-29] MEDS: NACHLORIDE 0.45% 1,000 ML IV SCH (06:02)
[2020-08-29 06:37] LABS: BUN Blood Urea Nitrogen 100 mg/dL (7-18); Bicarbonate 21 mmol/L (21-32); Ferritin 1737.2 ng/mL (8-388); Glucose Level 245 mg/dL (74-106); Magnesium 3.4 mg/dL (1.8-2.4); Potassium 5.1 mmol/L (3.5-5.1); Sodium Level 144 mmol/L (136-145)
[2020-08-29 06:59] LABS: C-Reactive Protein < 2.90 mg/L (<3.00)
[2020-08-29] MEDS: INSULIN 70/30 100 UNITS/ML SQ SCH ×2 (07:00→16:00)
[2020-08-29] MEDS: FAMOTIDINE 20 MG TAB PO SCH ×3 (09:00→20:06)
[2020-08-29] MEDS: VITAMIN D 1000 UNIT TAB PO SCH ×2 (09:00→09:40)
[2020-08-29] MEDS: THIAMINE HCL 100 MG TABLET PO SCH ×2 (09:00→09:40)
[2020-08-29] MEDS: MONTELUKAST 10 MG TAB PO SCH ×2 (09:00→09:40)
[2020-08-29] MEDS: levoFLOXacin 500 MG TAB PO SCH ×2 (09:00→09:40)
[2020-08-29] MEDS: GLUCERNA SHAKE 237 ML CAN PO SCH ×2 (09:00→20:07)
[2020-08-29] MEDS: ASPIRIN EC 81 MG TAB PO SCH ×2 (09:00→09:40)
[2020-08-29] MEDS: APIXABAN 5 MG TABLET PO SCH ×3 (09:00→20:06)
[2020-08-29] MEDS: BENZONATATE 100 MG CAP PO SCH ×3 (09:00→20:06)
[2020-08-29] MEDS ORDERED: SITAGLIPTIN PHOS 100 MG TAB PO SCH (09:00)
[2020-08-29] MEDS: FLUCONAZOLE 100 MG TAB PO SCH ×2 (09:00→09:40)
[2020-08-29] MEDS: INSULIN -REGULAR HUMAN 50 UNIT/0.5 ML ML SQ SCH ×4 (09:39→20:06)
[2020-08-29] MEDS: METHYLPREDNISOLONE 40 MG INJ IV SCH ×2 (12:58→20:05)
[2020-08-29] MEDS: D5W 1,000 ML IV SCH (13:35)
--- NOTE | 2020-08-29 15:58 | P.PN ---
Subjective Date of Service: 08/29/20 Primary Care Provider: Alley Chief Complaint: Covid penumonia Subjective: Worsening (Patient reports feeling about the same. Nursing stay patient has not been eating anything for the past 2 days, at times refusing medications as well. Patient tells me in nothing tastes good [place] although food makes her gag.) Review of Systems 10-point ROS is otherwise unremarkable Physical Examination - Vital Signs Temperature: 97.2 F Blood Pressure: 132/81 Pulse: 82 Respirations: 24 Pulse Ox (%): 98 - Physical Exam General: Alert, Mild distress, Other (Appears very fatigued, not wanting to open eyes) HEENT: Sclerae nonicteric Respiratory: Other (Labored on hfnc) Cardiovascular: No edema, Regular rate/rhythm Gastrointestinal: Soft and benign, No tenderness Musculoskeletal: No tenderness Integumentary: No rashes Assessment & Plan Physician Review Additional Text: Acute respiratory failure with hypoxia secondary to COVID-19 pneumonia Hypermagnesemia CKD 3 IDDM2 HTN Continue with Solu-Medrol 40 mg b.i.d. on HFNC, will continue to wean as tolerated continue eliquis continue home 70/30, Januvia discontinued, patient has not been eating common refused 2 days Renal function slight worsening, will consult nephrology, likely prerenal. Started half-normal saline at 50 cc/lower yesterday, switch to D5 at 75ml/hr per pulmonary recommendations Spironolactone discontinued on 08/28, patient had refused for 2 days anyway, and appears dry ferritin increasing dispo: Slowly weaning on the HFNC, would benefit from LTACH - pt agreeable Discussed that she may require dobhoff for nutrition if she continues to not eat. Patient states she will try to eat today. If she is unable to, will place dobhoff tomorrow Time Spent Managing Pts Care (In Minutes): 45
--- NOTE | 2020-08-29 17:58 | P.CNS ---
Date of Consult: 08/29/20 Reason for Consult: CKD evaluation. Requesting Physician: Carlos Manuel Ballard Primary Care Provider: Alley Chief Complaint: Covid penumonia History of Present Illness: 75 y o female pt with hx of DM, HTN, CKD stage 3 and hyperlipidemia admitted for management of covid 19 infection. she has had slight worsening of her kidney function and elevated BUN in the last few days deemed due to steroid doses which has been de-escalated. she is presently on supplemental oxygen for respiratory failure and has stable vitals. her appetite is poor and she has not had good oral in take in the last few days. no hypotensive episodes. NO chest pain, fever, chills, rigor, N/V or diarrhea reported. Allergies Sulfa (Sulfonamide Antibiotics) Allergy (Verified 08/21/20 22:55) Itching/Hives/Rash zolpidem [From Ambien] Adverse Reaction (Verified 08/21/20 22:55) Nausea/Vomiting Home Medications: Insulin 70/30 NPH/Reg Human [Novolin 70/30*] 54 unit SQ [id number] 07/06/17 Ergocalciferol (Vitamin D2) [Vitamin D2] 50,000 unit PO EVERY 7TH DAY 12/31/17 Albuterol Sulfate [Albuterol Sulfate Hfa] 8.5 gm IH Q6HP PRN 08/21/20 Latanoprost/Pf [Latanoprost 0.005% Eye Drop] 7.5 ml OP BEDTIME 08/21/20 Losartan Potassium [Cozaar] 50 mg PO DAILY 08/21/20 Montelukast [Singulair] 10 mg PO DAILY 08/21/20 Travoprost [Travatan Z] 1 drop OPTH BEDTIME 08/21/20 predniSONE [Deltasone] 10 mg PO BID 08/21/20 - Past Medical/Surgical History Diabetic: Yes -: IDDM -: Hypertension -: vaginal vault prolapse -: cystocele -: rectocele -: hemorrhoid 2017 -: appy years ago -: lt knee replacement sev years ago -: tubal 45 yrs ago -: tummy tuck 20 yrs ago -: rt trigger finger release 2000 -: rt rtc repair 2016 - Family History Father Medical History: Heart disease Notes: mother and sister with heart disease, sis had stroke and diabetes - Social History Smoking Status: Unknown if ever smoked Alcohol use: No CD- Drugs: No Caffeine use: No Place of Residence: Home Review of Systems 10-point ROS is otherwise unremarkable Respiratory: Cough, Shortness of Breath Gastrointestinal: Other (poor appetite.) Neurological: Other (headache) Physical Examination Temp Pulse Resp BP Pulse Ox 97.2 F 113 H 27 H 143/93 H 99 08/29/20 15:58 08/29/20 17:00 08/29/20 17:00 08/29/20 17:00 08/29/20 16:00 General: Alert, Oriented x3, Acute distress HEENT: Atraumatic, Normocephalic Neck: Supple Respiratory: Diminished Cardiovascular: No edema, Regular rate/rhythm, Normal S1 S2 Gastrointestinal: Soft and benign Neurological: Normal speech, Cranial nerves 3-12 intact Conclusions/Impression: #CKD stage 3- she does have elevated creatinine as far back as 2013. her baseline creatinine is 1.5-1.6. she had slight worsening today but her BUN has also increased raising concerns for steroid effect. she is on anticoagulation with eliquis. we will dose meds for eGFR and avoid nephrotoxin exposure. we will obtain urine p/c and pth for better evaluation of ckd. we will also obtain phosphorus level and retroperitoneal US to better evaluate her kidneys. we recommend to avoid recurrent hypotensive episodes. we will continue gentle hydration with D5W for now. #COVID 19 Infection-on steroids. we will monitor. #Elevated BUN-episode is deemed due to steroid effect and with a stable hb GI bleed is somewhat. we will monitor her hb since she is on anticoagulant meds. #Respiratory failure with hypoxia-we will wean off oxygen as tolerated. Critical Care: Yes Time Spent Managing Pts care (In Minutes): 60
[2020-08-29] MEDS: ATORVASTATIN 20 MG TAB PO SCH (20:06)
[2020-08-29] MEDS: MELATONIN 3 MG TABLET PO SCH (20:06)
[2020-08-29] MEDS: EYE PO SCH (20:07)
[2020-08-29] MEDS: LATANOPROST 0.005% PO SCH (20:07)
[2020-08-29] MEDS: TRAVATAN Z OPTH SCH (20:07)
[2020-08-29] MEDS ORDERED: LORazepam 2 MG/ML VIAL IV ONE (21:58)
[2020-08-30] MEDS: D5W 1,000 ML IV SCH ×2 (04:45→17:40)
[2020-08-30 05:29] LABS: ALT/SGPT 65 U/L (12-78); AST/SGOT 39 U/L (15-37); Albumin 2.7 g/dL (3.4-5.0); Alkaline Phosphatase 78 U/L (45-117); BUN Blood Urea Nitrogen 87 mg/dL (7-18); Bicarbonate 21 mmol/L (21-32); Bilirubin Total 0.9 mg/dL (0.2-1.0); C-Reactive Protein < 2.90 mg/L (<3.00); Ferritin 1928.4 ng/mL (8-388); Glucose Level 338 mg/dL (74-106); Magnesium 3.2 mg/dL (1.8-2.4); Phosphorus 3.2 mg/dL (2.5-4.9); Potassium 4.9 mmol/L (3.5-5.1); Protein, Total 7.6 g/dL (6.4-8.2); Sodium Level 141 mmol/L (136-145)
[2020-08-30] MEDS: INSULIN 70/30 100 UNITS/ML SQ SCH ×2 (07:00→17:01)
[2020-08-30] MEDS: INSULIN -REGULAR HUMAN 50 UNIT/0.5 ML ML SQ SCH ×3 (10:22→16:59)
[2020-08-30] MEDS: APIXABAN 5 MG TABLET PO SCH (10:23)
[2020-08-30] MEDS: METHYLPREDNISOLONE 40 MG INJ IV SCH (10:23)
[2020-08-30] MEDS: ASPIRIN EC 81 MG TAB PO SCH (10:23)
[2020-08-30] MEDS: FAMOTIDINE 20 MG TAB PO SCH (10:23)
[2020-08-30] MEDS: levoFLOXacin 500 MG TAB PO SCH (10:23)
[2020-08-30] MEDS: FLUCONAZOLE 100 MG TAB PO SCH (10:23)
[2020-08-30] MEDS: MONTELUKAST 10 MG TAB PO SCH (10:24)
[2020-08-30] MEDS: THIAMINE HCL 100 MG TABLET PO SCH (10:24)
[2020-08-30] MEDS: VITAMIN D 1000 UNIT TAB PO SCH (10:24)
[2020-08-30] MEDS: BENZONATATE 100 MG CAP PO SCH ×2 (10:24→14:00)
[2020-08-30] MEDS ORDERED: INSULIN 70/30 100 UNITS/ML SQ ONE (12:00)
--- NOTE | 2020-08-30 12:05 | P.PN ---
Subjective Date of Service: 08/30/20 Primary Care Provider: Alley Chief Complaint: Covid penumonia No change patient is very weak disoriented this morning will requiring high concentrations of oxygen Review of Systems General: Weakness Respiratory: Shortness of Breath Physical Examination - Vital Signs Temperature: 97.2 F Blood Pressure: 133/80 Pulse: 81 Respirations: 24 Pulse Ox (%): 94 Assessment & Plan - Problems (Diagnosis) (1) Pneumonia due to COVID-19 virus Current Visit: Yes Status: Acute Plan: Admitted with respiratory failure still requiring high concentrations of oxygen blood sugars white count both elevated renal function improving prognosis poor increase insulin a dose discuss with Dr. Ballard try on BiPAP and check the Mar of oxygen required to maintain a sat around 90% also check with the EMS to make sure she will be able to be transported
[2020-08-30 12:33] LABS: Absolute Lymphocytes (CBC) 0.8 K/uL (0.7-4.9); Basophils % 0.1 % (0-1.3); Hematocrit 55.6 % (36.0-45.0); Lymphocytes % 3.1 % (15.3-44.8); MPV 11.8 fL (7.6-11.3); RBC Red Blood Cell Count 6.13 M/uL (3.86-4.86)
--- NOTE | 2020-08-30 12:40 | RAD REPORT ---
EXAM DESCRIPTION: RAD - Chest Single View - 08/30/2020 12:32 pm CLINICAL HISTORY: Najera virus pneumonia Chest pain. COMPARISON: Chest Single View dated 08/26/2020; Chest Single View dated 08/22/2020; Chest Single View dated 08/21/2020; Chest Single View dated 08/19/2020 FINDINGS: Portable technique limits examination quality. [id number] bilateral interstitial lung prominence is seen likely representing viral pneumonitis / bronchitis. Lung aeration appears mildly worse than on the comparative study. The heart is mildly e nlarged in size.
[2020-08-30 13:02] LABS: Platelet Estimate ADEQ; Platelets, Giant FEW
[2020-08-30 13:03] LABS: Blood Morphology Comment NOT SEEN (NOT SEEN)
[2020-08-30] MEDS: GLUCERNA SHAKE 237 ML CAN PO SCH (14:37)
[2020-08-30 16:22] VITALS: O2SAT 90
--- NOTE | 2020-09-01 13:53 | P.DS ---
Admission Date: 08/21/20 Discharge Date: 08/30/20 Primary Care Provider: Alley Disposition: [facility] Discharge Condition: FAIR Reason for Admission: Covid penumonia Consultations: Pulmonology - Dr. Escobedo Nephrology - Dr. Becerra Procedures: CXR (08/21): moderate left and mild-mod R pulmonary opacitities, likely pneumonia CXR (08/22): Mild improvement in lung aeration seen since comparative examination. CXR (08/26): Improvement in bilateral pulmonary opacities which are now mild. CXR (08/30): [id number] bilateral interstitial lung prominence is seen likely representing viral pneumonitis/ bronchitis. Lung aeration appears mildly worse than on the comparative study. The heart is mildly enlarged in size. Problem List: Acute respiratory failure with hypoxia secondary to COVID-19 pneumonia Hypermagnesemia CKD 3 IDDM2 HTN Brief History of Present Illness: 75yo female, presented to ED with ~1 week of feeling ill with recent worsening of SOB with associated fever. She was noted to be hypoxic in the ED and was placed on non-rebreather. She was found to have COVID-19 pneumonia and admitted for further treatment. Hospital Course: Patient had a prolonged hospitalization and was very difficult to wean oxygen. Pulmonology was consulted and patient was requiring HFNC and BIPAP throughout her hospitalization. She was treated with high dose IV Solumedrol and had resolution of her elevated CRP, however her ferritin continued to increase. She was noted to have mild worsening of her renal function and rising BUN. Nephrology was consulted and agreed this was likely due to steroid effect. Hospitalization was complicated by lack of taste/appetite. Patient was refusing medications and food for 2-3 days prior to discharge. A long conversation was had with patient, family was involved, and patient ultimately stated she would force herself to eat, to avoid dobhoff placement. Given her prolonged course, it was recommended she be transferred to LTACH for ongoing care. She may be a COVID-19 pneumonia patient that requires high level of oxygen supplementation for a prolonged period. She was accepted and transferred to LTACH on 08/30. She was stable on BIPAP, and confirmed with EMS they would be able to transfer her with current BIPAP settings. Vital Signs/Physical Exam: Temp Pulse Resp BP Pulse Ox 97.0 F 101 H 28 H 124/83 92 12/14/20 16:00 08/30/20 17:00 08/30/20 17:00 08/30/20 17:00 08/30/20 17:00 General: Alert, Oriented x3, Mild distress (frail) HEENT: Sclerae nonicteric Respiratory: Other (mildly labored on HFNC) Cardiovascular: No edema, Regular rate/rhythm Gastrointestinal: Soft and benign, No tenderness Musculoskeletal: No tenderness Integumentary: No rashes, No significant lesion Neurological: Normal speech, Abnormal affect (seems depressed, fatigued, upset) Laboratory Data at Discharge: WBC 27.2 K/uL (4.3-10.9) H* D 08/30/20 12:17 Hgb 18.3 g/dL (12.0-15.0) H 08/30/20 12:17 Hct 55.6 % (36.0-45.0) H 08/30/20 12:17 Plt Count 256 K/uL (152-406) 08/30/20 12:17 PT 11.7 SECONDS (9.5-12.5) 08/21/20 17:29 INR 0.99 08/21/20 17:29 Sodium 141 mmol/L (136-145) 08/30/20 04:40 Potassium 4.9 mmol/L (3.5-5.1) 08/30/20 04:40 BUN 87 mg/dL (7-18) H 08/30/20 04:40 Creatinine 1.59 mg/dL (0.55-1.3) H 08/30/20 04:40 Glucose 338 mg/dL (74-106) H 08/30/20 04:40 Phosphorus 3.2 mg/dL (2.5-4.9) 08/30/20 04:40 Magnesium 3.2 mg/dL (1.8-2.4) H 08/30/20 04:40 Total Bilirubin 0.9 mg/dL (0.2-1.0) 08/30/20 04:40 AST 39 U/L (15-37) H 08/30/20 04:40 ALT 65 U/L (12-78) 08/30/20 04:40 Alkaline Phosphatase 78 U/L (45-117) 08/30/20 04:40 Home Medications: Insulin 70/30 NPH/Reg Human [Novolin 70/30*] 54 unit SQ [id number] 07/06/17 Ergocalciferol (Vitamin D2) [Vitamin D2] 50,000 unit PO EVERY 7TH DAY 12/31/17 Albuterol Sulfate [Albuterol Sulfate Hfa] 8.5 gm IH Q6HP PRN 08/21/20 Latanoprost/Pf [Latanoprost 0.005% Eye Drop] 7.5 ml OP BEDTIME 08/21/20 Losartan Potassium [Cozaar] 50 mg PO DAILY 08/21/20 Montelukast [Singulair] 10 mg PO DAILY 08/21/20 Travoprost [Travatan Z] 1 drop OPTH BEDTIME 08/21/20 predniSONE [Deltasone] 10 mg PO BID 08/21/20 Diet: ADA Activity: [place] Followup: Unknown,U [Primary Care Provider] - Time spent managing pt's care (in minutes): 45
[2020-09-05 11:46] VITALS: BP 125/75; TEMP 97.5
== END 2020-08-30 18:10 | DRG 177 ==
LOC: ER 16:59 → ERHOLD 19:11 → 3RD-ICU 20:09
PROVIDERS: ADMIT Internal Medicine Sleep Medicine; ATTEND Hospitalist
DX: U07.1 COVID-19 (principal); J12.89 Other viral pneumonia; J96.01 Acute respiratory failure with hypoxia; I12.9 Hypertensive chronic kidney disease with stage 1 through stage 4 chronic kidney disease, or unspecified chronic kidney disease; N18.30 Chronic kidney disease, stage 3 unspecified; E11.22 Type 2 diabetes mellitus with diabetic chronic kidney disease; E78.5 Hyperlipidemia, unspecified; E86.0 Dehydration; E83.41 Hypermagnesemia; D72.829 Elevated white blood cell count, unspecified; T38.0X5A Adverse effect of glucocorticoids and synthetic analogues, initial encounter; Z88.1 Allergy status to other antibiotic agents; Z88.8 Allergy status to other drugs, medicaments and biological substances; Z79.4 Long term (current) use of insulin; Z79.899 Other long term (current) drug therapy; Z96.652 Presence of left artificial knee joint; Z98.51 Tubal ligation status; Z79.01 Long term (current) use of anticoagulants; Z79.52 Long term (current) use of systemic steroids
CPT/HCPCS: 36415; 71045; 71275; 80048; 80053; 80076; 82728; 82947; 83605; 83690; 83735; 83880; 83970; 84100; 84145; 84484; 85025; 85379; 85610; 85730; 86140; 87040; 87070; 87081; 93005; 94002; 94003; 94640; 94660; 96365; 96368; 96372; 96374; 99285; J0456; J0696; J1100; J1815; J2920; J7040; J7050; Q9967